=== PATIENT | female | born 1935 | race Caucasian/White ===

== ENCOUNTER 2021-01-05 13:51 | Outpatient (REF) | payer MEDICARE, SELFPAY ==
[2021-01-05 15:00] LABS: Anion Gap 14 (12-20); Blood Urea Nitrogen 21 mg/dL (9-16); Calcium 9.5 mg/dL (8.4-10.2); Carbon Dioxide 24 mmol/L (22-29); Chloride 105 mmol/L (96-108); Estimated Glomerular Filt Rate 37; Glucose Random 205 mg/dL (60-115); Potassium 4.1 mmol/L (3.3-5.1); Sodium 139 mmol/L (135-145)
== END 2021-01-05 13:52 | disposition home or self-care (01) ==
LOC: HO.LNP 13:51
PROVIDERS: Visit Provider Internal Medicine
DX: N18.9 Chronic kidney disease, unspecified (principal)
CPT/HCPCS: 80048

== ENCOUNTER 2024-10-30 11:15 | Outpatient (AMB) | payer OTHER, SELFPAY ==
--- NOTE | 2024-10-30 11:25 | HO.NEPHOV ---
Vital Signs 10/30/24 11:34 Height 5 ft 7 in Weight 189 lb 2 oz BMI 29.6 BP 140/70 H Blood Pressure Location Lt brachial Position Sitting Pulse 70 Pulse Source Pulse Oximeter Pulse Oximetry (%) 97 Oxygen Delivery Method Room Air Intake Visit Reasons: Returning [facility] pt-Conf Director Of Casework Department Required: No Accompanied by: Sister Allergies aspirin Allergy (Unknown, Verified 10/30/24 11:33) Unknown HPI Comments Details: I had the privilege of seeing Susan in follow up of her CKD and hypertension. She was accompanied by her daughter during this visit. She has H/O CAD . She is not any blood thinners . She says she is allergic to aspirin and Plavix. She was on Brillinta for some time but was discontinued. She was asking whether she should be on it. She does not have any nausea, vomiting, diarrhea, dizziness, chest pain, SOB, PND, orthopnea, edema, UTI's, hematuria, recent antibiotic use, intake of NSAID's. Her blood sugars are not well controlled. Her recent BP has been around 140/70 mm of Hg. [facility] Medical History (Updated 10/30/24 @ 19:29 by Steve Montenegro MD) History of heart attack Hypertension Chronic kidney disease, stage 3a Surgical History (Updated 10/30/24 @ 11:28 by Jackie Colon MA) History of appendectomy Family History (Updated 10/30/24 @ 11:30 by Jackie Colon MA) Paternal Aunt Diabetes Paternal Uncle Diabetes Maternal Aunt Diabetes Maternal Uncle Diabetes Sister Diabetes Social History (Updated 10/30/24 @ 11:28 by Jackie Colon MA) Alcohol intake: never Patient Tobacco Use Status: Never used Tobacco Review of Systems Const All systems reviewed & are unremarkable except as noted in HPI and below Physical Exam Vital Signs: Last Vital Signs Pulse 70 10/30/24 11:34 BP 140/70 H 10/30/24 11:34 Pulse Ox 97 10/30/24 11:34 Oxygen Delivery Method Room Air 10/30/24 11:34 BMI result Body Mass Index 29.6 Const General: comfortable and no acute distress Orientation/consciousness: patient oriented x3 HEENT Head: Yes normocephalic Mouth: Normal oral and palatal mucosa present Eyes EOM: EOMs intact bilaterally Neck Neck: Yes supple Resp Auscultation: clear to auscultation bilaterally Cardio Jugular venous distension: no JVD Rate: regular rate GI Palpation (GI): Soft to palpation Auscultation: normal bowel sounds General: Yes no CVA tenderness Back/Spine/Pelvis Back: no CVA tenderness Skin General skin exam: no rashes or lesions noted Neuro General: patient oriented x3 and moves all extremities Extrem General: Yes no pedal edema Results Reviewed Nephrology Results: Sodium 139 mmol/L (135-145) 01/05/21 Potassium 4.1 mmol/L (3.3-5.1) 01/05/21 Chloride 105 mmol/L (96-108) 01/05/21 Carbon Dioxide 24 mmol/L (22-29) 01/05/21 BUN 21 mg/dL (9-16) H 01/05/21 Creatinine 1.37 mg/dL (0.5-1.4) 01/05/21 Calcium 9.5 mg/dL (8.4-10.2) 01/05/21 Assessment & Plan Assessment & Plan (1) Chronic kidney disease, stage 3a: Code(s): N18.31 - Chronic kidney disease, stage 3a Category: Medical (2) Hypertension: Code(s): I10 - Essential (primary) hypertension Category: Medical Qualifiers: Hypertension type: primary hypertension Qualified Code(s): I10 - Essential (primary) hypertension Plan Has CKD 3 due to vascular disease with contribution from DM BP needs to be at goal. Not on ACEI/ARB or SGLT2 i( Don't know why) Continue good hydration, low sodium and avoid NSAID's Needs to be on ASA ( after seeing accounting policy consultant) or some other agent Communicated this with PCP regarding this evening Shall consider doing Doppler renal arteries at next visit Shall start Jardiance at next visit after reviewing data Answered all questions. F/U given Orders: Orders Protein Creatinine Ratio, Ur 6 Months I10 - Essential (primary) hypertension, N18.31 - Chronic kidney disease, stage 3a Creatinine 6 Months I10 - Essential (primary) hypertension, N18.31 - Chronic kidney disease, stage 3a Electrolytes 6 Months I10 - Essential (primary) hypertension, N18.31 - Chronic kidney disease, stage 3a Blood Urea Nitrogen 6 Months I10 - Essential (primary) hypertension, N18.31 - Chronic kidney disease, stage 3a Calcium 6 Months I10 - Essential (primary) hypertension, N18.31 - Chronic kidney disease, stage 3a Coding Level of Care Code Est Pt Level 4 (83841) Diagnoses Chronic kidney disease, stage 3a N18.31 Primary hypertension I10 Hypertension type: primary hypertension
[2024-10-30 11:34] VITALS: BP 140/70; PULSE 70; O2SAT 97; BMI 29.6
--- OUTSIDE RECORDS SUMMARY | 2024-10-30 11:54 | XMS_ITS | Clinical Summary ---
Author Organization [address] [place] [address] Address [address] [place] [address] Phone Care Team Providers Care Project Geophysicist Name Role Phone Michael Tuttle MD Primary Care Provider [phone] Allergies Active Allergy Reactions Criticality Noted Date Comments Aspirin 03/01/2017 Codeine 01/12/2021 Lisinopril 02/25/2018 Other Hallucinations 03/17/2024 Tylenol With Codeine Medications insulin NPH, Isophane, (HumuLIN N NPH U-100 Insulin) 100 unit/mL injection Inject 20 Units into the skin at bedtime. 03/01/2017 Active clopidogreL (PLAVIX) 75 mg tablet Take 1 tablet (75 mg total) by mouth 1 (one) time each day. 30 each 5 09/18/2024 03/17/20 25 Active acetaminophen (TYLENOL) 500 mg capsule Take 1 capsule (500 mg total) by mouth every 6 (six) hours if needed for mild pain. 30 capsule 1 09/20/2024 Active atorvastatin (LIPITOR) 80 mg tablet Take 1 tablet (80 mg total) by mouth 1 (one) time each day. at bedtime. 90 each 09/20/2024 03/19/20 25 Active cholecalciferol (VITAMIN D-3) 25 mcg (1,000 unit) tablet Take 1 tablet (1,000 Units total) by mouth 1 (one) time each day. 30 tablet 1 09/20/2024 Active isosorbide mononitrate (IMDUR) 120 mg 24 hr tablet Take 1 tablet (120 mg total) by mouth 1 (one) time each day. Do not crush or chew. 90 each 2 09/20/2024 06/17/19 26 Active multivitamin (Multiple Vitamins) tablet Take 1 tablet by mouth 1 (one) time each day. 60 tablet 1 09/20/2024 Active Active Problems Problem Noted Date Diagnosed Date Mitral stenosis 03/17/2024 Right leg pain 03/14/2022 Overview (03/17/2024): Last Assessment & Plan: Patient describes pain to the posterior aspect of her right knee. She does have tenderness to her right popliteal fossa on examination. She does not have any calf pain, peripheral edema, erythema, palpable cords. She does have risk factor for DVT as she was on prolonged flights within the past few months. I was able to get her a right lower extremity venous ultrasound for tomorrow, March 15, 2022, at 7:30 AM. She was given instructions to arrive 15 minutes early. Adverse drug reaction 03/09/2021 Diarrhea 03/02/2021 CAD (coronary artery disease) 01/06/2021 Overview (03/17/2024): Last Assessment & Plan: Patient has a history of coronary artery disease. She continues to deny any cardiac concerns today including episodes of chest discomfort and shortness of breath. She denies any exertional symptoms. She continues on cardioprotective medical therapy with carvedilol, atorvastatin, isosorbide mononitrate, amlodipine, and Brilinta. The patient continues on Brilinta 60 mg orally twice daily due to history of allergy to aspirin as well as significant side effects of diarrhea when she was on Plavix. She denies any episodes of bleeding or excessive bruising. At this point, we will continue current therapies. Assessment & Plan (09/18/2024 3:50 PM EDT): Stable on Lipitor, stop the Brilinta. It is causing headaches she thinks. Stop same .start Plavix. Imdur was increased to 120 mg daily by her cell geneticist. Not sure whether that is causing headaches. Orders: Hemoglobin A1c; Future CBC and differential; Future Comprehensive metabolic panel; Future Lipid panel with reflex to direct LDL; Future Thyroid stimulating hormone; Future Assessment & Plan (07/10/2024 11:24 AM EST): Patient has a history of coronary artery disease status post late presenting STEMI in December 2020. She also has a history of aspirin allergy and previously on antiplatelet therapy with Plavix, however this was switched to Brilinta in the past due to apparent side effects of the GI side effects with the use of Plavix. On today's visit, she reports she has stopped taking Brilinta, Coreg, and Imdur and statin. She self discontinued these medications as she perceives they were causing her side effects including gum pain. She was recently seen in the ER with neurological symptoms. On today's visit, we discussed the importance of taking Brilinta 60 mg orally twice daily given her history of coronary artery disease. She is hyperfocused on Brilinta and Coreg having interaction with each other and she is adamant that after restarting Coreg recently she has noticed these perceived side effects and that is why she stopped the Brilinta. At this point, I recommend she hold the Coreg and restart Brilinta as prescribed. She will also restart isosorbide mononitrate and atorvastatin. We discussed the importance of these medications given her history. I strongly encouraged her to have someone help her with her medications as she seems quite forgetful. Currently, she denies any anginal symptoms or episodes of chest pain. Upper respiratory tract infection 12/04/2018 Type 2 diabetes mellitus wit h neurological manifestations ([facility] V24, [facility] V28) 09/11/2018 Carpal tunnel syndrome 09/11/2018 Hypertension 02/25/2018 Overview (03/17/2024): Last Assessment & Plan: Patient has a history of hypertension. Her blood pressure is noted to be well controlled today with a reading of 128/70. She will continue her current antihypertensive medication regimen with amlodipine, carvedilol, and isosorbide. No changes to medical therapies. Assessment & Plan (09/18/2024 3:50 PM EDT): Under control Orders: Hemoglobin A1c; Future CBC and differential; Future Comprehensive metabolic panel; Future Lipid panel with reflex to direct LDL; Future Thyroid stimulating hormone; Future Assessment & Plan (07/10/2024 11:24 AM EST): Patient's blood pressure is acceptable today. She will continue her current antihypertensive medication regimen as prescribed. Type 2 diabetes mellitus wit h renal manifestations ([facility] V24, [facility] V28) 02/25/2018 CKD (chronic kidney disease) stage 3, GFR 30-59 ml/min ([facility] V24, [facility] V28) 02/25/2018 DM (obstructive sleep apnea) 02/25/2018 Hypomagnesemia 05/23/2017 Hyperlipidemia 04/10/2017 Overview (03/17/2024): Last Assessment & Plan: Patient has a history of hyperlipidemia as well as a history of coronary artery disease. Her last LDL cholesterol was noted to be 54. She continues on her current dose of atorvastatin as prescribed. At this point, we will continue current therapies. I have reviewed with the patient the importance of a heart healthy lifestyle which includes eating a low-fat low-salt diet, getting regular exercise, maintaining a healthy weight, not smoking, and following up with routine medical care. GERD (gastroesophageal reflux disease) 7 DJD (degenerative joint disease) of knee 012 Encounters Date Type Department Care Team Description 2024 Telephone Internal Medicine - [place] [address] [address] Michael Tuttle MD 10/03/2024 Telephone Internal Medicine - [place] [address] [address] Michael Tuttle MD Triage 09/18/2024 9:37 PM EDT - 09/19/2024 1:39 AM EDT Emergency [facility] Emergency [address] [place] [id number] Medication overdose, accidental or unintentional, initial encounter (Primary Dx) Discharge Disposition: Home or Self Care 09/18/2024 3:00 PM EDT Office Visit Internal Medicine [address] [phone] Michael Tuttle MD Primary hypertension (Primary Dx); Hypercholesterolemia; Coronary artery disease involving nightmute coronary artery of nightmute heart without angina pectoris; Diabetes mellitus type 1.5, managed as type 2 ([facility] V24, [facility] V28); Stage 3 chronic kidney disease, unspecified whether stage 3a or 3b CKD ([facility] V24, [facility] V28) 09/16/2024 Telephone [facility] [address] [place] [address] Conrado Rush MD Medication 08/11/2024 Telephone [facility] [address] [place] [address] Jaqueline Ocasio NP appointment cancelation from Last 3 Months Immunizations Name Administration Dates Next Due Influenza trivalent, 0.5mL ( Fluzone High-dose) 65yo and older 03/21/2019 Surgical History Surgery Date Site/Laterality Comments CHOLECYSTECTOMY PROCEDURE: HISTORICAL CHOLECYSTECTOMY CARPAL TUNNEL RELEASE PROCEDURE: HISTORICAL CARPAL TUNNEL REL; COMMENT: bilateral CATARACT EXTRACTION PROCEDURE: HISTORICAL CATARACT REMOVAL OTHER SURGICAL HISTORY PROCEDURE: HISTORY OTHER; COMMENT: polypectomy , no further information OTHER SURGICAL HISTORY PROCEDURE: HISTORY OTHER; COMMENT: breast cyst removal Medical History Medical History Date Comments CKD (chronic kidney disease) stage 3, GFR 30-59 ml/min ([facility] V24, [facility] V28) 02/25/2018 DX:CKD (chronic kidney disea se) stage 3, GFR 30-59 ml/min ([facility]) DJD (degenerative joint dise ase) of knee 07/11/2011 DX:DJD (degenerative joint d isease) of knee GERD (gastroesophageal reflu x disease) 04/10/2017 DX:GERD (gastroesophageal re flux disease) Hyperlipidemia 04/10/2017 DX:Hyperlipidemi a Hypertension 02/25/2018 DX:Hypertension Hypomagnesemia 05/23/2017 DX:Hypomagnesemi a DM (obstructive sleep apnea) 02/25/2018 DX :DM (obstructive sleep apnea) Type 2 diabetes mellitus wit h renal manifestations ([facility] V24, [facility] V28) 02/25/2018 DX:Type 2 diabetes mellitus with renal manifestations ([facility]) Carpal tunnel syndrome 09/11/2018 DX:Carpal tunnel syndrome Type 2 diabetes mellitus wit h neurological manifestations (CMS/HCC V24, CMS/HCC V28) 09/11/2018 DX:Type 2 diabetes mellitus with neurological manifestations (HCC) Family History Medical History Relation Name Comments Hypertension Mother CVA Relation Name Status Comments Father Mother Social History Tobacco Use Types Packs/Day Years Used Date Smoking Tobacco: Never Smokeless Tobacco: Never Alcohol Use Standard Drinks/Week Comments No 0 (1 standard drink = 0.6 oz pur e alcohol) Comments Unknown Sex and Gender Information Value Date Recorded Sex Assigned at Female 09/18/2024 10:17 PM EDT Legal Sex Female 8:48 PM EST Gender Identity Female 09/18/2024 10:17 PM EDT Sexual Orientation Straight 09/18/2024 10 :17 PM EDT Obstetrics History Last Filed Vital Signs Vital Sign Reading Time Taken Comments Blood Pressure 149/71 09/18/2024 9:48 PM EDT Pulse 74 09/18/2024 9:48 PM EDT Temperature 36.8 ??C (98.2 ??F) 09/18/2024 9:48 PM ED T Respiratory Rate 20 09/18/2024 9:48 PM EDT Oxygen Saturation 99% 09/18/2024 9:48 PM EDT Inhaled Oxygen Concentration - - Weight 83.8 kg (184 lb 12.8 oz) 09/18/2024 3:12 PM EDT Height 170.2 cm (5' 7 ) 09/18/2024 3:12 PM EDT Body Mass Index 28.94 09/18/2024 3:12 PM EDT Plan of Treatment Upcoming Encounters Date Type Department Care Team (Late st Contact Info) Description 11/10/2024 10:40 AM EDT Office Visit [facility] [address] [facility] [address] [place] [phone] Michelle Galvez NP [address] [place] [address] [place] [address] 01/12/2025 1:15 PM EDT Office Visit Internal Medicine - [place] [address] [place] [phone] Michael Tuttle MD [address] [address] 03/23/2025 3:00 PM EDT Office Visit Internal Medicine - [place] [address] [phone] Michael Tuttle MD [address] [address] Health Maintenance Due Date Last Done Comments Diabetes: Annual Foot Exam 1945 DTaP,Tdap,and Td Vaccines (1 - Tdap) 10[birth year]28/1954 RSV Immunization Adult Patients (1 - 1-dose 75+ series) 10/28/2011 Zoster Vaccines (2 of 3) 01/11/2016 11/16/2015 Osteoporosis Screening (Bone Density Screening) 05/20/2022 Social Influencers of Health Screening 05/20/2022 COVID-19 Vaccine (7 - Pfizer risk season) 2024 03/08/2024, 03/13/2023, 03/08/2022, Additional history exists Diabetes: Annual Retina Eye Exam 11/12/2024 11/13/2023 Diabetes: Blood Sugar Control Test (HGBA1C) 03/28/2025 09/26/2024, 04/28/2024, 08/22/2019 Depression Screening 09/18/2025 09/18/2024 Falls Risk Assessment 09/18/2025 09/18/2024 Medicare Annual Wellness Visit 09/18/2025 09/18/2024 Hypertension/CHF/CAD Annual BMP Blood Test 09/26/2025 09/26/2024, 04/28/2024, 08/22/2019 Cholesterol Screening (Lipid Panel) 09/26/2029 09/26/2024, 04/28/2024, 04/28/2024, Additional history exists Pneumococcal Vaccine: 50+ Years Completed 05/09/2022, 03/26/2017, 11/16/2015 Influenza Vaccine Completed 03/08/2024, , 04/06/2022, Additional history exists HIB Vaccines Aged Out No longer eligi ble based on patient's age to complete this topic HPV Vaccines Aged Out No longer eligi ble based on patient's age to complete this topic Hepatitis A Vaccines Aged Out No long er eligible based on patient's age to complete this topic Hepatitis B Vaccines Aged Out No long er eligible based on patient's age to complete this topic IPV Vaccines Aged Out No longer eligi ble based on patient's age to complete this topic MMR Vaccines Aged Out No longer eligi ble based on patient's age to complete this topic Meningococcal ACWY Vaccine Aged Out N o longer eligible based on patient's age to complete this topic Meningococcal B Vaccine Aged Out No l onger eligible based on patient's age to complete this topic RSV Immunization Patients Under 20 months Aged Out No longer eligible based on patient's age to complete this topic Varicella Vaccines Aged Out No longer eligible based on patient's age to complete this topic Procedures Procedure Name Priority Date/Time Associated Diagnosis Comments CBC WITH AUTO DIFFERENTIAL Routine 09/26/2024 2:20 PM EDT Primary hypertension Hypercholesterolem ia Coronary artery disease involving nightmute coronary artery of nightmute heart without angina pectoris Diabetes mellitus type 1.5, managed as type 2 (CMS/HCC V24, CMS/HCC V28) HEMOGLOBIN A1C Routine 09/26/2024 2:20 PM EDT Primary hypertension Hypercholesterolem ia Coronary artery disease involving nightmute coronary artery of nightmute heart without angina pectoris Diabetes mellitus type 1.5, managed as type 2 (CMS/HCC V24, CMS/HCC V28) CBC AND DIFFERENTIAL Routine 09/26/2024 2:20 PM EDT Primary hypertension Hypercholesterolem ia Coronary artery disease involving nightmute coronary artery of nightmute heart without angina pectoris Diabetes mellitus type 1.5, managed as type 2 (CMS/HCC V24, CMS/HCC V28) COMPREHENSIVE METABOLIC PANEL Routine 09/26/2024 2:20 PM EDT Primary hypertension Hypercholesterolem ia Coronary artery disease involving nightmute coronary artery of nightmute heart without angina pectoris Diabetes mellitus type 1.5, managed as type 2 (CMS/HCC V24, CMS/HCC V28) LIPID PANEL WITH REFLEX TO DIRECT LDL Routine 09/26/2024 2:20 PM EDT Primary hypertension Hypercholesterolem ia Coronary artery disease involving nightmute coronary artery of nightmute heart without angina pectoris Diabetes mellitus type 1.5, managed as type 2 ([facility] V24, [facility] V28) THYROID STIMULATING HORMONE Routine 09/26/2024 2:20 PM EDT Primary hypertension Hypercholesterolem ia Coronary artery disease involving nightmute coronary artery of nightmute heart without angina pectoris Diabetes mellitus type 1.5, managed as type 2 ([facility] V24, [facility] V28) DIABETES EYE EXAM Routine 11/13/2023 from Last 3 Months or Most Recently Relevant to Health Maintenance Results * Lipid panel with reflex to direct LDL (09/26/2024 2:20 PM EDT) Pathologist [facility] Cholesterol 101 0 - 200 mg/dL LAB CHEMISTRY METHOD 09/26/2024 7:38 PM EDT [facility] Triglycerides 106 0 - 150 mg/dL LAB CHEMISTRY METHOD 09/26/2024 7:38 PM EDT [facility] HDL 44 >=40 mg/dL LAB CHEMISTRY METHOD 09/26/2024 7:38 PM EDT [facility] LDL Calculated 36 0 - 100 mg/dL LAB CHEMISTRY METHOD 09/26/2024 7:38 PM T [facility] VLDL Cholesterol Tadeo 21.2 mg/dL LAB CHEMISTRY METHOD 09/26/2024 7:38 PM T [facility] Non HDL Chol. (LDL+VLDL) 57 <145 mg/dL LAB CHEMISTRY METHOD 09/26/2024 7:38 PM EDT [facility] Chol/HDL Ratio 2.3 0.0 - 4.4 LAB CHEMISTRY METHOD 09/26/2024 7:38 PM [facility] Blood Venous blood specimen / Unknown Venipuncture / Unknown 09/26/2024 2:20 PM EDT 09/26/2024 2:20 PM EDT us Michael Tuttle MD LAB BLOOD ORDERABLES Final Resul t [facility] [address] [place] [address], * (ABNORMAL) CBC auto differential (09/26/2024 2:20 PM EDT) WBC 8.4 4.8 - 10.8 K/mcL LAB HEMETOLOGY METHOD 09/26/2024 7:13 PM EDT [facility] RBC 4.60 3.80 - 4.80 M/mcL LAB HEMETOLOGY METHOD 09/26/2024 7:13 PM EDT [facility] Hemoglobin 13.5 11.5 - 16.0 g/dL LAB HEMETOLOGY METHOD 09/26/2024 7:13 PM EDT [facility] Hematocrit 43.2 35.0 - 47.0 % LAB HEMETOLOGY METHOD 09/26/2024 7:13 PM EDT [facility] MCV 94.5 79.0 - 98.0 FL LAB HEMETOLOGY METHOD 09/26/2024 7:13 PM EDT [facility] MCH 29.5 27.0 - 32.0 pcg LAB HEMETOLOGY METHOD 09/26/2024 7:13 PM EDT [facility] MCHC 31.3(L) 32.0 - 37.0 g/dL LAB HEMETOLOGY METHOD 09/26/2024 7:13 PM EDT [facility] RDW 13.5 11.0 - 15.0 % LAB HEMETOLOGY METHOD 09/26/2024 7:13 PM EDT [facility] Platelets 252 130 - 400 K/mcL LAB HEMETOLOGY METHOD 09/26/2024 7:13 PM EDT [facility] MPV 11.5(H) 7.0 - 11.0 FL LAB HEMETOLOGY METHOD 09/26/2024 7:13 PM EDT [facility] NRBC 0.0 <1.0 % LAB HEMETOLOGY METHOD 09/26/2024 7:13 PM EDT [facility] NRBC Absolute 0.00 <0.10 K/mcL LAB HEMETOLOGY METHOD [facility]/26[facility]2024 7[facility] Neutrophils Relative 59.3 % LAB HEMETOLOGY METHOD 09/26[facility]2024 7:13 PM [facility] Lymphocytes Relative 29.5 % LAB HEMETOLOGY METHOD 09/26/2024 7:13 PM [facility] Monocytes Relative 9.3 % LAB HEMETOLOGY METHOD 09/26/2024 7:13 PM [facility] Eosinophils Relative 1.1 % LAB HEMETOLOGY METHOD 09/26/2024 7:13 PM [facility] Basophils Relative 0.6 % LAB HEMETOLOGY METHOD 09/26/2024 7:13 PM [facility] Immature Granulocytes Relative 0.2 % LAB HEMETOLOGY METHOD 09/26/2024 7:13 PM [facility] Neutrophils Absolute 4.98 1.50 - 7.00 K/mcL LAB HEMETOLOGY METHOD 09/26/2024 7:13 PM [facility] Lymphocytes Absolute 2.48 1.00 - 5.00 K/mcL LAB HEMETOLOGY METHOD 09/26/2024 7:13 PM EDT [facility] Monocytes Absolute 0.78 0.20 - 1.00 K/mcL LAB HEMETOLOGY METHOD 09/26/2024 7:13 PM [facility] Eosinophils Absolute 0.09 0.00 - 0.50 K/mcL LAB HEMETOLOGY METHOD 09/26/2024 7:13 PM [facility] Basophils Absolute 0.05 0.00 - 0.20 K/mcL LAB HEMETOLOGY METHOD 09/26/2024 7:13 PM EDT [facility] Immature Granulocytes Absolute 0.02 0.00 - 0.03 K/mcL LAB HEMETOLOGY METHOD 09/26/2024 7:13 PM EDT [facility] Blood Venous blood specimen / Unknown Venipuncture / Unknown 09/26/2024 2:20 PM EDT 09/26/2024 2:20 PM EDT us Michael Tuttle MD LAB BLOOD ORDERABLES Final Resul t Performing Organization Address [facility]/ZIP Co de Phone Number [facility] [address] [place] [address], [place] [phone] * Thyroid stimulating hormone (09/26/2024 2:20 PM EDT) TSH 1.44 0.40 - 4.00 mcIU/mL LAB CHEMISTRY METHOD 09/26/2024 8:11 PM EDT [facility] Blood Venous blood specimen / Unknown Venipuncture / Unknown 09/26/2024 2:20 PM EDT 09/26/2024 2:20 PM EDT us Michael Tuttle MD LAB BLOOD ORDERABLES Final Resul t Performing Organization Address [facility]/ZIP Co de Phone Number [facility] [address] [place] [address], [place] [phone] * (ABNORMAL) Hemoglobin A1c (09/26/2024 2:20 PM EDT) Hemoglobin A1C 8.0(H) <6.5 % LAB CHEMISTRY METHOD 09/26/2024 9:34 PM EDT [facility] Mean Bld Glu Estim. 183 mg/dL LAB CHEMISTRY METHOD 09/26/2024 9:34 PM EDT [facility] Blood Venous blood specimen / Unknown Venipuncture / Unknown 09/26/2024 2:20 PM EDT 09/26/2024 2:20 PM EDT us Michael Tuttle MD LAB BLOOD ORDERABLES Final Resul t [facility] [address] [place] [address], [place] [phone] * (ABNORMAL) Comprehensive metabolic panel (09/26/2024 2:20 PM EDT) Pathologist [facility] Sodium 141 133 - 145 mmol/L LAB CHEMISTRY METHOD 09/26/2024 7:38 PM [facility] Potassium 4.3 3.5 - 5.5 mmol/L LAB CHEMISTRY METHOD 09/26/2024 7:38 PM [facility] Chloride 108 96 - 110 mmol/L LAB CHEMISTRY METHOD 09/26/2024 7:38 PM [facility] CO2 26 21 - 32 mmol/L LAB CHEMISTRY METHOD 09/26/2024 7:38 PM [facility] Anion Gap 7 3 - 11 LAB CHEMISTRY METHOD 09/26/2024 7:38 PM [facility] Glucose 158(H) 70 - 100 mg/dL LAB CHEMISTRY METHOD 09/26/2024 7:38 PM [facility] BUN 17 5 - 25 mg/dL LAB CHEMISTRY METHOD 09/26/2024 7:38 PM [facility] Creatinine 1.37(H) 0.50 - 1.10 mg/dL LAB CHEMISTRY METHOD 09/26/2024 7:38 PM [facility] eGFR 37(L) >=60 mL/min/1. 73m2 LAB CHEMISTRY METHOD 09/26/2024 7:38 PM [facility] Comment:Calculation based on the??Chronic Kidney Disease Epidemiology Collaboration (CKD-EPI) equation refit??without adjustment for race. BUN/Creatinine Ratio 12.4 LAB CHEMISTRY METHOD 09/26/2024 7:38 PM T [facility] Calcium 9.8 8.5 - 10.5 mg/dL LAB CHEMISTRY METHOD 09/26/2024 7:38 PM T [facility] AST (SGOT) 20 10 - 42 unit/L LAB CHEMISTRY METHOD 09/26/2024 7:38 PM [facility] ALT (SGPT) 21 10 - 60 unit/L LAB CHEMISTRY METHOD 09/26/2024 7:38 PM [facility] Alkaline Phosphatase 114 42 - 121 unit/L LAB CHEMISTRY METHOD 09/26/2024 7:38 PM [facility] Total Protein 6.8 6.0 - 8.0 g/dL LAB CHEMISTRY METHOD 09/26/2024 7:38 PM [facility] Albumin 3.4 3.2 - 5.0 g/dL LAB CHEMISTRY METHOD 09/26/2024 7:38 PM [facility] Total Bilirubin 0.5 0.0 - 1.4 mg/dL LAB CHEMISTRY METHOD 09/26/2024 7:38 PM [facility] Blood Venous blood specimen / Unknown Venipuncture / Unknown 09/26/2024 2:20 PM EDT 09/26/2024 2:20 PM EDT Michael Tuttle MD LAB BLOOD ORDERABLES Final Resul t [facility] [address] [place] [address], * Diabetes Eye Exam (11/13/2023) Diabetes: Annual Retina Eye Exam abstracted Historical Provider HEALTH MAINTENANCE Final Result from Last 3 Months or Most Recently Relevant to Health Maintenance Insurance [employer] MEDICARE [place]ICAID - [place] Care Teams Project Geophysicist Relationship Specialty Start Date End Date Michael Tuttle MD 175 [facility] [address] [place] [address] PCP - General Internal Medicine 03/03/21
--- OUTSIDE RECORDS SUMMARY | 2024-10-30 11:54 | XMS_ITS | Clinical Summary ---
Author Organization [facility] Address [address] [facility] [address] [place] [address] Phone Care Team Providers Care Beef Pusher Name Role Phone Michael Tuttle MD Primary Care Provider Allergies Active Allergy Reactions Criticality Noted Date Comments Aspirin Other (see comments) 11/11/2020 Other reaction(s): foaming at mouth Medications amLODIPine (NORVASC) 10 MG tablet Take 1 tablet by mouth 1 (one) time each day Active carvedilol (COREG) 6.25 MG tablet Take 1 tablet by mouth 2 (two) times a day 12/31/2017 Active Insulin Lispro, 1 Unit Dial, 100 UNIT/ML solution pen-injector Inject 15 Units under the skin 2 (two) times a day Active insulin NPH, Isophane, (HumuLIN N) 100 UNIT/ML injection Inject 19 Units under the skin 2 (two) times a day Active isosorbide mononitrate (IMDUR) 120 MG 24 hr tablet Take 120 mg by mouth 1 (one) time each day 02/23/2021 Active Brilinta 60 MG tablet Take 1 tablet by mouth 2 (two) times a day 04/12/2021 Active atorvastatin (LIPITOR) 80 MG tablet Take 80 mg by mouth at bed time 03/29/2021 Active Active Problems Problem Noted Date Diagnosed Date Asymptomatic coronary heart disease 03/14/2022 Hypercholesterolemia 03/14/2022 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 Peripheral vascular disease 03/14/2022 Palpitations 12/06/2021 Type 2 diabetes mellitus 12/06/2021 Hypertension 12/06/2021 Hypertensive disorder 05/10/2021 Benign hypertensive renal disease 11/11/2020 Stage 3a chronic kidney disease 11/11/2020 Family History Medical History Relation Comments Hypertension Mother Stroke Mother Diabetes Sibling 1 Cancer Sibling 2 Relation Status Comments Father Mother Sibling 1 Sibling 2 Social History Tobacco Use Types Packs/Day Years Used Date Smoking Tobacco: Never Smokeless Tobacco: Never Tobacco Cessation:Counseling Given: Not Answered Alcohol Use Standard Drinks/Week Comments No 0 (1 standard drink = 0.6 oz pur e alcohol) Comments Unknown Sex and Gender Information Value Date Recorded Sex Assigned at Not on file Legal Sex Female 5:02 PM EST Gender Identity Not on file Sexual Orientation Not on file Last Filed Vital Signs Vital Sign Reading Time Taken Comments Blood Pressure 130/70 05/30/2022 2:40 PM EST Pulse 63 05/30/2022 2:40 PM EST Temperature - - Respiratory Rate - - Oxygen Saturation 96% 05/10/2021 2:37 PM EST Inhaled Oxygen Concentration - - Weight 96.1 kg (211 lb 12.8 oz) 05/30/2022 2:40 PM EST Height 170.2 cm (5' 7 ) 09/26/2019 12:0 0 PM EDT Body Mass Index 33.17 09/26/2019 12:00 PM EDT Plan of Treatment Health Maintenance Due Date Last Done Comments Pneumococcal Vaccine: 50+ Ye ars (1 of 2 - PCV) 10/28/1954 Diabetes: Ophthalmology Exam 09/20/2021 Diabetes: Pedal Pulse Checked 09/20/2021 Diabetes: Sensory Foot Exam 09/20/2021 Diabetes: Visual Foot Exam 09/20/2021 Diabetes: Hemoglobin A1C 12/26/2024 09/26/2024 Influenza Vaccine (Season Ended) 2025 03/21/20 Hepatitis B Vaccine Aged Out No longe r eligible based on patient's age to complete this topic Insurance Medicare Medicare Care Teams Beef Pusher Relationship Specialty Start Date End Date Michael Tuttle MD [address] [place] [id number] PCP - General 06/21/20
--- OUTSIDE RECORDS SUMMARY | 2024-10-30 11:54 | XMS_ITS | Patient Health Record ---
Author Organization [facility] Address [address] [place] [address] Care Team Providers Care Network Architect Manager Name Role Phone Michael Tuttle MD Primary Care Provider UnavailCrow Alcantara Unavailable [phone] Allergies Allergen (clinical drug ingredient) Drug/Non Drug Allergy documented on EMR Reaction Allergy Type Onset Date Status aspirin Aspirin mouth foams Drug Allergy Activ e fluticasone Flonase itch Drug Allergy Activ e Shrimp/Shell Fish tingle & mouth swell Drug Allergy Active Reason For Referral No Information Medications Medication SIG (Take, Route, Frequency, Duration) Notes Start Date End Date Status Losartan Potassium 50 MG take 1 tablet b y mouth once daily Oral for 90 Not-Taking Extra Depth Diabetic Shoes with 3 Pair Custom heat-molded multi-density innersoles for 1 year Dx: 10/31/2016 Active Olmesartan Medoxomil 20 MG Oral for 30 Not-Taking Omeprazole 20 MG Oral for 30 N ot-Taking Multivitamin Active HumuLIN N Active Vitamin D Active hydroCHLOROthiazide 12.5 MG take 1 table t by mouth once daily Oral for 30 Active Benicar 20 MG Oral for 30 Acti ve amLODIPine Besylate 10 MG take 1 tablet by mouth once daily Oral for 90 Active Simvastatin 10 MG Oral for 90 Not-Taking Social History Tobacco Use: Social History Observation Description Date Details (start date - stop date) Never Smoker NA - NA Tobacco Use/Smoking Question Answer Notes Are you a: nonsmoker Additional Findings: Tobacco Non-User Current no n-smoker Alcohol Screen Question Answer Notes Did you have a drink containing alcohol in the p ast year? No Points 0 Interpretation Negative Tobacco use other than smoking: Question Answer Notes Are you an other tobacco user? No Problems Problem Type SNOMED Code ICD Code Onset Dates Problem Status W/U Status Risk Notes Problem Acquired hammer toe of right foot (7977771000315131 ) Other hammer toe(s) (acquired), right foot (M20.41) Active confirmed Problem Acquired hammer toe of left foot (8530350921764904 ) Other hammer toe(s) (acquired), left foot (M20.42) Active confirmed Problem Polyneuropathy due to diabetes mellitus type I (374186268) Type 1 diabetes mellitus with diabetic polyneuropathy (E10.42) Active confirmed Plan Of Treatment Pending Test Test Name Order Date [id number] NAIL, 6 OR MORE 10/31/2016 [id number] NAIL, 6 OR MORE 01/30/2017 [id number] SKIN LESIONS, OVER 4 11/01/19 17 [id number] SKIN LESIONS, OVER 4 01/31/20 17 Next Appt Details Provider Name:Michelle plummer, 01/01/2025 10:30:00 AM, [address] [facility], [place], [address], Insurance Providers Payer Name Payer Address Payer Phone Subscriber Number Group Number Insured Name Patient Relationship to Insured Coverage Start Date Coverage End Date AARP Medicare Complete [address] [address] [place] [address] [id number] Susan Florez Self - patient is the insured Medical (General) History Medical History History ICD Code Arthritis Diabetic Hypertension Kidney disease Reflux ( GERD) chronic sinusitis Measles Mumps Chicken pox Surgical History Surgery Date(Month/Year) gall bladder over 10years carpal tunnel surgery-both hand eye surgery 2015
--- OUTSIDE RECORDS SUMMARY | 2024-10-30 11:54 | XMS_ITS | Continuity of Care Document ---
Author Organization [facility] [address] [facility] [address] [place] [address] Phone [phone] Care Team Providers Care Regulatory Assistant Name Role Phone Michael Tuttle M.D. Care Team Information Receive r [phone] Problems Active Problems Provider Date Type 2 diabetes mellitus Crispin Choudhury M.D. O nset: 03/14/2022 Hypercholesterolemia Crispin Choudhury M.D. Onset : 03/14/2022 Peripheral vascular disease Lincoln Calderon Onset: 03/14/2022 Asymptomatic coronary heart disease Crispin hurtado M.D. Onset: 03/14/2022 Peripheral arterial occlusive disease Crispin jiménez M.D. Onset: 03/14/2022 Insulin treated type 2 diabetes mellitus Crispin cruz M.D. Onset: 12/08/2022 Essential hypertension Crispin Choudhury M.D. Ons et: 12/08/2022 Osteoarthritis Crispin Choudhury M.D. Onset: Social History Type Date Description Comments Sex Unknown Lives With Alone ETOH Use Denies alcohol use Tobacco Use Start: Unknown Patient has never smoked Allergies and adverse reactions Active Allergies Criticality Reaction Severity Comments Date Aspirin Unable to assess criticality 03/14/2022 Medications Active Medications SIG Qnty Indications Order ing Provider Date BD Insulin Syringe Ultrafine/0.3ML/31G X 5/16 31G X 5/16 0.3 ML Misc use syringes to inject insulins twice a day 100units E11.9 Karrie Cintron M.D. 09/12/2024 BD Pen Needle/Mini/Ultra-F ine/31G X 5mm31G X 5 mm Misc Use Twice Daily To Inject Insulin 100units Karrie Cintron M.D. 09/08/2024 Isosorbide Mononitrate AR358fn Tablets ER 24HR one qd Crispin Choudhury M.D. 04/10/2023 Oxybutynin Chloride ER10mg Tablets ER 24HR take 1 tablet by mouth every day for 90 days 90tabs Crispin Choudhury M.D. 04/10/2023 Iron (Ferrous Sulfate)325(65Fe) mg Tablets Crispin Choudhury M.D. 03/14/2022 Amlodipine Tuzkckxv82ap Tablets Take 1 Tablet By Mouth Every Day 90tabs Karrie Cintron M.D. 12/27/2021 Carvedilol6.25mg Tablets Take 1 Tablet By Mouth Twice Daily 180tabs Karrie Cintron M.D. Humulin Z239Teme/ML Suspension Inject Subcutaneously 19 Units Twice Daily 40units E11.9 Valentino Wheeler M.D. Atorvastatin Wmfihss35az Tablets Take 1 Tablet By Mouth AT Bedtime Christine Atwood PA-C Humalog Gdajzrc619Lbmv/ML Solution Pen-Inject inject 8 units pre bkfst and supper 20ml E11.9 Crispin Choudhury M.D. Vitamin N9120gvb (5000 Ut) Capsules 3 by mouth every week Unknown History Medications BD Insulin Syringe Ultra-Fine/1ML/30G X 12.7mm30G X 1/2 1 ML Misc use syringes to inject insulins twice a day 300units E11.9 Karrie Cintron M.D. 09/11/2024 - 09/12/2024 B-D Pen NDL SHRT 30SB0ML(10/24) Derek Use Twice Daily To Inject Insulin 200units Karrie Cintron M.D. 08/29/2024 - 09/08/2024 BD Insulin Syringe Ultra Fine/1ML/30G X 1/2 30G X 1/2 1 ML Misc use syringes to inject insulin twice a day 200units E11.9 Karrie Cintron M.D. 03/27/2024 - 09/11/2024 Medications Administered in Office Medication SIG Qnty Indications Ordering Provider Date Inject/Drain Arthrocentesis Major Joint/Bursa/Ganglion CystInjection Crispin Choudhury M.D. 12/08 Vital Signs Date Vital Result Comment 10/09/2024 1:20pm BP Systolic 128 mmHg BP Diastolic 74 mmHg Heart Rate 60 /min Height 67 inches 5'7 Weight 186.25 lb BMI (Body Mass Index) 29.2 kg/m2 Results Test Acquired Date Facility Test Result H/L Range Note Hemoglobin A1c 10/09/2024 Inhouse Hemoglobin A1c 7.7% Glucose Fingerstick 10/09/2024 Inhouse Glucose Fingerstick 134 Glucose Fingerstick 07/11/2024 Inhouse Glucose Fingerstick 86 Hemoglobin A1c 07/11/2024 Inhouse Hemoglobin A1c 7.0% Glucose Fingerstick 03/20/2024 Inhouse Glucose Fingerstick 142 Hemoglobin A1c 03/20/2024 Inhouse Hemoglobin A1c 7.2% Glucose Fingerstick 04/10/2023 Inhouse Glucose Fingerstick 158 Hemoglobin A1c 04/10/2023 Inhouse Hemoglobin A1c 7.2% Hemoglobin A1c 01/05/2023 [facility] Hemoglobin A1c 7.6 % High (4.0-5.6 ) 1 Lipid Panel 01/05/2023 [facility] Cholesterol, Total 123 mg/dL (<200) Triglyceride 91 mg/dL (<150) HDL Chol 51 mg/dL (>39) LDL Cholesterol , Calculated 54 mg/dL (0-130) Non HDL Cholesterol (Calc) 72 mg/dL (<160) Comprehensive Metabolic Panl 01/05/2023 [facility] Glucose 170 mg/dL High (70-99) BUN 16 mg/dL (8-23) Creatinine 1.3 mg/dL High (0.5-1.0 ) Sodium 142 mmol/L (133-145 ) Potassium 4.4 mmol/L (3.6-5.2 ) Chloride 107 mmol/L (98-107) Bicarbonate 25 mmol/L (22-29) Anion Gap 10 (4-17) Albumin 4.1 GM/DL (3.4-4.8 ) Calcium 10.0 mg/dL (8.6-10. 5) Bilirubin,Total 0.5 mg/dL (0-1.2 ) Total Protein 6.8 GM/DL (6.2-8.2 ) Ag Ratio 1.5 Ast 21 U/L (0-32) Alk Phos 86 U/L (35-104) Alt 17 U/L (0-33) Estimated GFR Creatinine 39 ML/MIN/1. 73M2 2 Complete Abc With Diff 01/05/2023 [facility] WBC 9.1 K/MM3 (4.0-11. 0) RBC 4.81 M/MM3 (4.20-5. 40) HGB 13.8 GM/DL (11.7-15 .5) HCT 43.6 % (35.7-45 .8) MCV 90.6 FL (80.0-10 0.0) MCH 28.7 pg (27.0-34 .0) MCHC 31.7 g/dL Low (33.0-37 .0) PLT 253 K/MM3 (150-460 ) RDW-SD 46.3 FL (<47.0) MPV 11.0 FL (9.4-12. 4) Automated NRBC 0.0 #/100WBC' S Abs. NRBC 0.0 K/MM3 Neut # 5.4 K/MM3 (1.3-7.0 ) Lymph # 2.8 K/MM3 (0.8-3.1 ) Stafford# 0.8 K/MM3 (0.4-0.9 ) Eo # 0.1 K/MM3 (0.0-0.4 ) Baso # 0.0 K/MM3 (0.0-0.1 ) Abs. Imm Gran 0.0 K/MM3 Neut 59.5 % (44-76) Lymph 30.1 % (15-43) Monocyte 8.3 % (4.5-10. 5) Eo 1.5 % (0-6) Baso 0.4 % (0-2) Imm Gran 0.2 % Urinary Microalbumin 01/05/2023 [facility] Micro-Albumin 51.0 mg/L High (<20) 3 Malb/Creat Ratio 29.9 MG/GM High (0-20) Urine Creat For Micro Albumin 169.0 mg/dL Glucose Fingerstick 12/08/2022 Inhouse Glucose Fingerstick 232 Hemoglobin A1c 12/08/2022 Inhouse Hemoglobin A1c 7.6% Glucose Fingerstick 08/30/2022 Inhouse Glucose Fingerstick 120 Hemoglobin A1c 08/30/2022 Inhouse Hemoglobin A1c 8.0% Hemoglobin A1c 03/14/2022 [facility] Hemoglobin A1c <pending> Glucose Fingerstick 03/14/2022 Inhouse Glucose Fingerstick 167 Hemoglobin A1c 03/14/2022 Inhouse Hemoglobin A1c 7.9% 1 MONITORING: In known diabetic patients, hemoglobin A1c targets should be discussed with health care provider. DIAGNOSTIC USE: The [place] Diabetes Association (ADA) and the World Health Organization (WHO) recommend the use of HbA1c to diagnose diabetes using a threshold of 6.5%. Patients who have an HbA1c between 5.7% and 6.4% are considered at increased risk for developing diabetes in the future. CAUTION: Falsely low HbA1c results may be observed in patients with hemolytic anemia, homozygous forms of abnormal hemoglobin (e.g. SS, CC, SC), , recent blood loss or hemoglobin F greater than 7%. Fructosamine may be used as an alternate test in these cases. REFERENCE: ADA: Standards of Medical Care in Diabetes 2020, The Journal of Clinical and Applied Research and Education Volume 43, Supplement 1 2 Creatinine based est imated glomerular filtration (eGFR) in adults is calculated using the National Kidney Foundation recommended 2020 CKD-EPI equation. Estimates GFR from serum creatinine, age and sex. 3 The urine microalbum in test is designed to monitor renal function. When screening for Bence Florez proteinuria, urine electrophoresis is recommended. Procedures Date Code Description Status 12/08/2022 72199 Inject/Drain Art hrocentesis Major Joint/Bursa/Ganglion Cyst Completed Medical Devices Description No Information Available Encounters Type Date Location Provider Dx Diagnosis Office Visit 10/09/2024 1:15p Main Office KAROLINE Hansen E11.9 Type 2 diabet es mellitus without complications Z79.4 terminologist (current) use of insulin I10 Essential (primary) hypertension I25.89 Other forms of chron ic ischemic heart disease E78.00 Pure hypercholestero lemia, unspecified Assessments Date Code Description Provider 10/09/2024 E11.9 Type 2 diabetes mellitus wit hout complications KAROLINE Hansen 10/09/2024 Z79.4 halfway (current) use of i nsulin KAROLINE Hansen 10/09/2024 I10 Essential hypertension KAROLINE Hodgson 10/09/2024 I25.89 Asymptomatic coronary heart disease KAROLINE Hansen 10/09/2024 E78.00 Hypercholesterolemia KAROLINE Hansen Plan of Treatment Future Appointment(s):* 02/10/2025 1:00 pm - KAROLINE Hansen at Main Office 10/09/2024 - KAROLINE Hansen* E11.9 Type 2 diabetes mellitus without complications * Z79.4 terminologist (current) use of insulin * I10 Essential hypertension * I25.89 Asymptomatic coronary heart disease * E78.00 Hypercholesterolemia Functional Status Description No Information Available Mental Status Description No Information Available Referrals Description No Information Available
--- OUTSIDE RECORDS SUMMARY | 2024-10-30 11:54 | XMS_ITS | Encounter Summary ---
Author Organization [facility] Address [address] [place] [address] Care Team Providers Care Back Tacker Name Role Phone Michael Tuttle MD Primary Care Provider [phone] Reason for Referral * Consultation (Routine) - Closed Specialty Diagnoses / Procedures Referred By Santhosh jaimes Referred To Contact Neurology Diagnoses Acute nonintractable headache, unspecified headache type Michael Tuttle MD [address] [address] Phone: tel: fax: Torri Rosario, [facility] [address] [facility] [address] [place] [address] Phone: tel: fax: Referral ID Status Reason Start Date Expiration Date V isits Requested Visits Authorized [id number] Closed Specialty Services Required 2024 2025 1 1 Encounter Details Date Type Department Care Team (Late st Contact Info) Description 2024 Telephone Internal Medicine - [place] [address] [phone] Michael Tuttle MD [address] [address] Social History Tobacco Use Types Packs/Day Years [...] Orientation Straight 09/18/2024 10 :17 PM EDT documented as of this encounter Progress Notes * Jaqueline Guillermo - 2024 1:32 PM EDT What insurance does the patient have today? [facility]: [email or web address]/@[email or web address]@ Referrals cannot be processed if the insurance is not accurate. If the insurance listed above is NO BILLING INFORMATION FOUND FOR THIS ENCOUNTER then the patients correct insurance must be obtainedand registered in [facility] or their referral can not be processed. Name of person calling to request this referral? [facility] Referred To Provider (Include first and last name): Torri Rosario NPI (if known): [phone] Order/Specialty requested Neurology Chief Complaint (Note: This is not a body part or a procedure): Post concussion ~ 08/23/23 Has the patient seen provider for this problem/Dx before? no Referred To Provider Address: [address] [place] [address] Referred To Provider Referred To Provider Does patient have an appointment scheduled?: yes If yes, what is the date of the appointment?: 10/31/2024 Is this a retro request? no Number of visits requested: 6 Is this appointment related to: MVA or worker compensation? no documented in this encounter Plan of Treatment Upcoming Encounters Date Type Department Care Team (Late st Contact Info) Description 11/10/2024 10:40 AM EDT Office Visit [facility] Cardiology [facility] [address] [facility] [address] [place] [address] Michelle Galvez NP [address] [place] [address] [place] [address] 01/12/2025 1:15 PM EDT Office Visit Internal Medicine - [place] [address] [phone] Michael Tuttle MD [address] [address] 03/23/2025 3:00 PM EDT Office Visit Internal Medicine [facility] [address] [phone] Michael Tuttle MD [address] [address] Scheduled Referrals Name Type Priority Associated Diagnoses Orde r Schedule Ambulatory referral to Neurology Outpatient Referral Routine Acute nonintractable headache, unspecified headache type 1 Occurrences starting 2024 until 2025 documented as of this encounter Visit Diagnoses Diagnosis Acute nonintractable headache, unspecified headache type- Primary documented in this encounter Additional Health Concerns Assessment Noted Time PHQ-9 Depression Total Score: 1 09/19/19 25 3:21 PM EDT A fall risk assessment has been complete d for the patient 09/18/2024 3:18 PM EDT documented as of this encounter Care Teams Back Tacker Relationship Specialty Start Date End Date Michael Tuttle MD [address] [address] PCP - General Internal Medicine 03/03/21 documented as of this encounter
--- OUTSIDE RECORDS SUMMARY | 2024-10-30 11:54 | XMS_ITS | Clinical Summary ---
Author Organization [employer] Address [address] [facility] [address] [place] [address] Care Team Providers Care Home Aide Name Role Phone Unavailable Primary Care Provider Unavailabl e Social History Tobacco Use Types Packs/Day Years Used Date Smoking Tobacco: Never Assessed Comments Unknown Sex and Gender Information Value Date Recorded Sex Assigned at Not on file Legal Sex Female 8:59 AM EDT Gender Identity Not on file Sexual Orientation Not on file Plan of Treatment Health Maintenance Due Date Last Done Comments Depression Screening 1936 Lipid Panel 1936 SDOH Screening 1936 Alcohol/Substance Use Screening 1948 Tobacco Screening 1947 DTaP/Tdap/Td Vaccines (1 - Tdap) 10/28/1954 Pneumococcal Vaccine: 50+ Ye ars (1 of 1 - PCV) 1986 Zoster Vaccines (1 of 2) 1986 RSV Patients and Pa tients Aged 60 years or older (1 - 1-dose 75+ series) 10/28/2011 COVID-19 Vaccine ( - 2023-2 5 season) 2024 Influenza Vaccine (#1) 2024 HIB Vaccines Aged Out No longer eligi [...] patient's age to complete this topic Meningococcal Vaccine Aged Out No vern elana eligible based on patient's age to complete this topic RSV under 20 months Aged Out No longe r eligible based on patient's age to complete this topic Rotavirus Vaccines Aged Out No longer eligible based on patient's age to complete this topic Insurance [facility]
== END 2024-10-30 12:02 | disposition home or self-care (01) ==
LOC: HO.HKAS 11:16
PROVIDERS: PCP Internal Medicine; Visit Provider Internal Medicine Nephrology
DX: N18.31 Chronic kidney disease, stage 3a (principal); I10 Essential (primary) hypertension
CPT/HCPCS: 99214

== ENCOUNTER 2025-05-01 13:46 | Outpatient (REF) | payer MEDICARE, SELFPAY ==
--- OUTSIDE RECORDS SUMMARY | 2025-05-01 14:23 | XMS_ITS | Encounter Summary ---
Author Organization [facility] Address [address] [place] [address] Phone Care Team Providers Care Demand Equipment Repairer Name Role Phone Michael Tuttle MD Primary Care Provider [phone] Encounter Details Date Type Department Care Team (Late st Contact Info) Description 11/11/2024 Documentation Only [facility], [address] [place] [address] [place], [place] [address] [place] [address] Social History Tobacco Use Types Packs/Day Years Used Date Smoking Tobacco: Never Smokeless Tobacco: Never Alcohol Use Standard Drinks/Week Comments No 0 (1 standard drink = 0.6 oz pur e alcohol) Comments Unknown Sex and Gender Information Value Date Recorded Sex Assigned at Not on file Legal Sex Female 5:02 PM EST Gender Identity Not on file Sexual Orientation Not on file documented as of this encounter Plan of Treatment Not on file documented as of this encounter Visit Diagnoses Not on filedocumented in this encounter Care Teams Demand Equipment Repairer Relationship Specialty Start Date End Date Michael Tuttle MD [address] [address] PCP - General Internal Medicine 11/07/24 documented as of this encounter
--- OUTSIDE RECORDS SUMMARY | 2025-05-01 14:23 | XMS_ITS | Clinical Summary ---
Author Organization [facility] Address [address] [place] [address] Phone Care Team Providers Care Tire Center Supervisor Name Role Phone Unavailable Primary Care Provider Unavailabl e Social History Tobacco Use Types Packs/Day Years Used Date Smoking Tobacco: Never Assessed Education Answer Date Recorded Are you interested in more education? Not on alicia e 10/07/2022 Are you concerned about learning? Not on file 10/07/2022 No 10/07/2022 No 10/07/2022 Digital Access Answer Date Recorded No 11/07/2022 No 11/07/2022 Reliable internet access at home? Not on file 11/07/2022 Device with a working camera? Not on file Comments Unknown Sex and Gender Information Value Date Recorded Sex Assigned at Not on file Legal Sex Female 11:28 AM EDT Gender Identity Not on file Sexual Orientation Not on file Plan of Treatment Not on file Medical Devices Not on file Additional Source Comments The information contained in this document represents components of the legal health record. It is not the complete legal health record.[facility]
--- OUTSIDE RECORDS SUMMARY | 2025-05-01 14:23 | XMS_ITS | Clinical Summary ---
Author Organization [address] [place] [address] Address [address] [place] [address] Phone Care Team Providers Care Transmitter Chief Name Role Phone Michael Tuttle MD Primary Care Provider [phone] Allergies Active Allergy Reactions Criticality Noted Date Comments Aspirin 03/01/2017 Codeine 01/12/2021 Lisinopril 02/25/2018 Other Hallucinations 03/17/2024 Tylenol With Codeine Medications insulin NPH, Isophane, (HumuLIN N NPH U-100 Insulin) 100 unit/mL injection Inject 20 Units into the skin at bedtime. 7 Active acetaminophen (TYLENOL) 500 mg capsule Take 1 capsule (500 mg total) by mouth every 6 (six) hours if needed for mild pain. 30 capsule 1 5 Active atorvastatin (LIPITOR) 80 mg tablet Take 1 tablet (80 mg total) by mouth 1 (one) time each day. at bedtime. 90 each 1 5 Active isosorbide mononitrate (IMDUR) 120 mg 24 hr tablet Take 1 tablet (120 mg total) by mouth 1 (one) time each day. Do not crush or chew. 90 each 2 5 06/17/19 26 Active multivitamin (Multiple Vitamins) tablet Take 1 tablet by mouth 1 (one) time each day. 60 tablet 1 5 Active carvediloL (COREG) 6.25 mg tablet Take by mouth 2 (two) times a day with meals. Active insulin lispro protamine-insuli n lispro (HumaLOG 50/50 KwikPen) 100 unit/mL (50-50) injection pen Inject 16 Units under the skin 2 (two) times a day before meals. Pens should be rolled between palms of hands ten times and inverted 180 degrees ten times prior to each use. Administer 5 to 15 minutes before a meal. 10 units before breakfast and 6 units before super Active cholecalciferol (VITAMIN D-3) 25 mcg (1,000 unit) tablet Take 1 tablet (1,000 Units total) by mouth 1 (one) time each day. 30 tablet 1 Active aspirin 81 mg tablet Take 81 mg by mouth 1 (one) time each day. Active Active Problems Problem Noted Date Diagnosed Date Mitral stenosis 03/17/2024 Assessment & Plan (11/10/2024 11:35 AM EDT): With history of mild mitral valve stenosis noted on echocardiogram from 2020, will update echocardiogram to reassess mitral stenosis. Orders: Transthoracic echocardiogram (TTE) complete with PRN contrast, bubble, strain, and 3D order panel; Future perflutren lipid microsphere (DEFINITY) 1.3 mL in sodium chloride 0.9% 8.7 mL injection Right leg pain 03/14/2022 Overview (03/17/2024): Last [...] will continue current therapies. Assessment & Plan (11/10/2024 11:35 AM EDT): Patient has a history of coronary artery disease status post late presenting STEMI in December 2020. She also has a history of aspirin allergy and previously on antiplatelet therapy with Plavix and then low dose Brilinta yet was unable to tolerate either of these medications. It is documented previously that these medications cause GI upset, today she reports that was causing vaginal spotting which completely resolved after discontinuing each. Patient to follow-up with an principle industrial hygienist to see if she is able to trial aspirin safely. She continues on statin, carvedilol and isosorbide. She denies chest pain, does report dyspnea on exertion which is unchanged. We discussed adding an additional antianginal such as amlodipine today, yet she states she was on this in the past and does not want to add another medication. She does not want to increase her isosorbide at this time either as she was looking to reduce it. Will update echocardiogram to assess EF. Patient advised to seek emergency medical attention by calling 911 if they were to develop severe dyspnea, chest pain that did not resolve with rest or nitroglycerin, or if they were to faint. Orders: Ambulatory referral to Allergy; Future Assessment & Plan (09/18/2024 3:50 PM EDT): Stable on Lipitor, stop the Brilinta. It is causing headaches she thinks. Stop same .start Plavix. Imdur was increased to 120 mg daily by her stained glass painter. Not sure whether that is causing headaches. 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 Her blood pressure is noted to be well controlled today with a reading of 128/70. She will continue her current antihypertensive medication regimen with amlodipine, carvedilol, and isosorbide. No changes to medical therapies. 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 Assessment & Plan (11/10/2024 11:35 AM EDT): Continue on statin. LDL one month ago was 36. I have reviewed with the patient the importance of a heart healthy lifestyle which includes eating a low-fat low-salt diet, getting regular exercise, maintaining a healthy weight, not smoking, and following up with routine medical care. 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 [address] [place] [phone] Conrado Rush MD 03/30/2025 Telephone Internal [facility] [place] [address] [place] [address] Michael Tuttle MD 03/23/2025 3:00 PM EDT Office Visit Internal [facility] [place] [address] [place] [phone] Michael Tuttle MD Type 2 diabetes mellitus with neurological manifestations ([facility] V24, [facility] V28) (Primary Dx); Coronary artery disease involving suquamish coronary artery of suquamish heart without angina pectoris; Hypercholesterolemia; Stage 3 chronic kidney disease, unspecified whether stage 3a or 3b CKD ([facility] V24, [facility] V28) 03/16/2025 Results Follow-Up [facility] - [facility] [address] [facility] [place] [phone] Michelle Galvez NP 02/19/2025 12:30 PM EDT Ancillary Procedure [facility] [address] [place] [phone] Mitral valve stenosis, unspecified etiology 01/29/2025 2:05 PM EDT - 01/29/2025 3:21 PM EDT Emergency [facility] [address] [place] [phone] Adam Blackburn MD Acute cystitis with hematuria (Primary Dx) Discharge Disposition: Home or Self Care from Last 3 Months Immunizations Immunization Administration Dates Next Due Influenza trivalent, 0.5mL (Fluad) 65yo and olde r 03/23/2025 Influenza trivalent, 0.5mL ( Fluzone High-dose) 66yo [...] kidney disease) stage 3, GFR 30-59 ml/min ([facility] V24, [facility] V28) 02/25/2018 DX:CKD (chronic kidney disea se) stage 3, GFR 30-59 ml/min ([facility]) DJD (degenerative joint dise ase) of knee 07/11/2011 DX:DJD (degenerative joint d isease) of knee GERD (gastroesophageal reflu x disease) 04/10/2017 DX:GERD (gastroesophageal re flux disease) Hyperlipidemia 04/10/2017 DX:Hyperlipidemi a Hypertension 02/25/2018 DX:Hypertension Hypomagnesemia 05/23/2017 DX:Hypomagnesemi a DM (obstructive sleep apnea) 02/25/2018 DX :DM (obstructive sleep apnea) Type 2 diabetes mellitus wit h renal manifestations (CMS/HCC V24, CMS/HCC V28) 02/25/2018 DX:Type 2 diabetes mellitus with renal manifestations (HCC) Carpal tunnel syndrome 09/11/2018 DX:Carpal tunnel syndrome [...] Sign Reading Time Taken Comments Blood Pressure 154/64 03/23/2025 3:10 PM EDT Pulse 86 03/23/2025 3:08 PM EDT Temperature 37.1 C (98.7 F) 03/23/2025 3:08 PM EDT Respiratory Rate 20 01/29/2025 1:08 PM EDT Oxygen Saturation 98% 03/23/2025 3:08 PM EDT Inhaled Oxygen Concentration - - Weight 82.4 kg (181 lb 9.6 oz) 03/23/2025 3:08 P M EDT Height 167.6 cm (5' 6 ) 03/23/2025 3:08 PM EDT Body Mass Index 29.31 03/23/2025 3:08 PM EDT Plan of Treatment Upcoming Encounters Date Type Department Care Team (Late st Contact Info) Description 06/16/2025 1:15 PM EST Office Visit Internal Medicine - [place] [address] [place] [address] Michael Tuttle MD [address] [place] [address] Health Maintenance Due Date Last Done Comments Diabetes: Annual Foot Exam 1945 DTaP,Tdap,and Td Vaccines (1 - Tdap) 10/28/1954 RSV Immunization Adult Patients (1 - 1-dose 75+ series) 10/28/2011 Zoster Vaccines (1 of 2) 01/11/2016 11/16/2015 Osteoporosis Screening (Bone Density Screening) 05/20/2022 Social Influencers of Health Screening 05/20/2022 Diabetes: Annual Retina Eye Exam 11/12/2024 11/13/2023 COVID-19 Vaccine ( season) 2025 03/08/2024, 03/13/2023, 03/08/2022, Additional history exists Diabetes: Blood Sugar Control Test (HGBA1C) 03/28/2025 09/26/2024, 04/28/2024, 08/22/2019 Falls Risk Assessment 09/18/2025 09/18/2024 Medicare Annual Wellness Visit 09/18/2025 09/18/2024 Hypertension/CHF/CAD Annual BMP Blood Test 01/29/2026 01/29/2025, 09/26/2024, 04/28/2024, Additional history exists Cholesterol Screening (Lipid Panel) 09/26/2029 09/26/2024, 04/28/2024, 04/28/2024, Additional history exists Pneumococcal Vaccine: 50+ Years Completed 05/09/2022, 03/26/2017, 11/16/2015 Depression Screening Completed 09/18/2024 Influenza Vaccine Completed 03/23/2025, , 03/13/2023, Additional history exists HIB Vaccines Aged Out [...] Procedure Name Priority Date/Time Associated Diagnosis Comments TRANSTHORACIC ECHOCARDIOGRAM (TTE) COMPLETE Routine 02/19/2025 1:24 PM EDT Mitral valve stenosis, unspecified etiology BEE URINE CULTURE TUBE STAT 01/29/2025 1:19 PM EDT URINALYSIS WITH REFLEX MICROSCOPIC AND CULTURE STAT 01/29/2025 1:19 PM EDT URINALYSIS WITH REFLEX MICROSCOPIC AND CULTURE STAT 01/29/2025 1:19 PM EDT CULTURE URINE STAT 01/29/2025 1:19 PM EDT CBC WITH AUTO DIFFERENTIAL STAT 01/29/2025 1:16 PM EDT BASIC METABOLIC PANEL STAT 01/29/2025 1:16 PM EDT CBC AND DIFFERENTIAL STAT 01/29/2025 1:16 PM EDT HEMOGLOBIN A1C Routine 09/26/2024 2:20 PM EDT Primary hypertension Hypercholesterolemi a Coronary artery disease involving suquam[place] coronary artery of suquamish heart without angina pectoris Diabetes mellitus type 1.5, managed as type 2 (CMS/HCC V24, CMS/[facility] V28) LIPID PANEL WITH REFLEX TO DIRECT LDL Routine 09/26/2024 2:20 PM EDT Primary hypertension Hypercholesterolemi a Coronary artery disease involving su[place]am[place] coronary artery of suquamish heart without angina pectoris Diabetes mellitus type 1.5, managed as type 2 (CMS/HCC V24, CMS/HCC V28) DIABETES EYE EXAM Routine 11/13/2023 from Last 3 Months or Most Recently Relevant to Health Maintenance Results * (ABNORMAL) TRANSTHORACIC ECHOCARDIOGRAM (TTE) COMPLETE (02/19/2025 1:24 PM EDT) Left Atrium Minor [place] 5.4 cm CV PACS Left Atrium Major [place] 4.8 cm CV PACS LA Area Sys (A2C) 18 cm2 CV PACS LA Area Sys (A4C) 15 cm2 CV PACS LA Volume (BP) 43 mL CV PACS RA Area 11.7 cm2 CV PACS RA 2D Volume 25 mL CV PACS Aortic Sinus Valsalva 3.1 cm CV PACS Ascending Aorta 3.4 cm CV PACS IVC Proximal 1.4 cm CV PACS IVC Proximal 0.6 cm CV PACS IVSD 1.0(A) 0.6 - 0.9 cm CV PACS LVIDD 4.0 3.8 - 5.2 cm CV PACS LVIDS 1.9(A) 2.2 - 3.5 cm CV PACS LVOT Diameter 2.3 cm CV PACS LVOT Mean [place] 0.7 m/s CV PACS LVOT Mean Grad 2 mmHg CV PACS LVOT Peak VTI 24.9 cm CV PACS LVOT Peak [place] 1.0 m/s CV PACS LVOT Peak Gradient 4 mmHg CV PACS LVPWD 1.0(A) 0.6 - 0.9 cm CV PACS MV E' Tissue Velocity Lateral 6 cm/s CV PACS MV E' Tissue Velocity Septal 4 cm/s CV PACS LVOT Area 4.2 cm2 CV PACS LVOT Stroke Volume 103 mL CV PACS MV Mean Gradient 2 mmHg CV PACS MR VTI 52.9 cm CV PACS MV VTI 49.0 cm CV PACS MR PISA Max Velocity 1.3 m/s CV PACS MR Peak Gradient 6 mmHg CV PACS Mitral Valve Max Velocity 1.3 m/s CV PACS MV Peak Gradient 7 mmHg CV PACS MV Area Planimetry 2.3 cm2 CV PACS MV Area Continuity Equation 2.1 cm2 CV PACS E Wave Deceleration Time 292(A) 119 - 242 ms CV PACS MV Peak A Sarwat 1.30 m/s CV PACS MV Peak E [place] 1.12 m/s CV PACS PV Acceleration Time 120 ms CV PACS PV Acceleration Time 120 ms CV PACS RV Diastolic Basal Dimension 1.7(A) 2.5 - 4.1 cm CV PACS RV S' 11 cm/s CV PACS TAPSE 20 mm CV PACS E/E' Ratio Septal 28 CV PACS E/E' Ratio Averaged 23 CV PACS Relative Wall Thickness ratio 0.50 CV PACS FS 53 % CV PACS LV Mass 2D 127 g CV PACS MV VTI:LVOT VTI ratio 2.0 CV PACS LVOT flow 291 mL/s CV PACS E/A Ratio 0.9 CV PACS E/E' Ratio Lateral 19 CV PACS BSA 1.99 m2 CV PACS LA Volume Index (BP) 22 mL/m2 CV PACS LVIDD Index 2.05 cm/m2 CV PACS LVIDS Index 0.97 cm/m2 CV PACS LV Mass Index 2D 65 44 - 88 g/m2 CV PACS LVOT Stroke Index 53 mL/m2 CV PACS RA 2D Volume Index 13(A) 15 - 27 mL/m2 CV PACS Ascending Aorta Index 1.74 cm/m2 CV PACS MV PHT 129 ms CV PACS MV Area PHT 1.7 cm2 CV PACS Anatomical Region Laterality Modality Ultrasound Narrative 03/16/2025 9:41 AM EDT Left ventricle cavity size is normal. Left ventricular systolic function is in the normal range with an ejection fraction of 60-65%. No regional LV wall motion abnormalities noted. Right ventricle cavity is small. Right ventricular systolic function is normal. Mitral Valve: There is mild regurgitation. There is mild stenosis. Left Ventricle Left ventricle cavity size is normal. Wall thickness is normal. Systolic function is normal with an ejection fraction of 60-65%. There are no regional LV wall motion abnormalities. There is Grade I (mild) diastolic dysfunction. Right Ventricle Right ventricle cavity is small. Systolic function is normal. Left Atrium Left atrium cavity size is normal. Right Atrium Right atrium cavity is small. IVC/SVC Inferior vena cava structure is normal. RA pressures is estimated to be 3 mmHg (IVC diameter <21 mm and decreases >50% during inspiration). Mitral Valve The leaflets are moderately thickened. There is mild annular calcification. There is calcification of the anterior leaflet subvalvular apparatus. There is calcification of the posterior leaflet subvalvular apparatus. There is mild regurgitation. There is mild stenosis. Tricuspid Valve Tricuspid valve structure is normal. Tricuspid regurgitation is inadequate for estimation of right ventricular systolic pressure. There is no significant tricuspid valve stenosis. Aortic Valve The aortic valve is probably trileaflet. The leaflets are not thickened and exhibit normal excursion. There is no regurgitation or stenosis. Pulmonic Valve The pulmonic valve was not well visualized. No significant pulmonic valve regurgitation. No significant pulmonary valve stenosis noted. Ascending Aorta The aorta appears normal in size. Pericardium Pericardium appears normal. There is no pericardial effusion. Study Details Overall the study quality was technically difficult. us Michelle Galvez NP CV ECHO PROCEDURES Final Resul t * (ABNORMAL) Urinalysis with reflex microscopic and culture (01/29/2025 1:19 PM EDT) Pathologist [facility] Specific [place] Urine 1.025 1.003 - 1.030 LAB URINALYSIS - AUTOMATED METHOD 01/29/2025 1:57 PM [facility] pH, Urine 7.0 5.0 - 8.0 pH LAB URINALYSIS - AUTOMATED METHOD 01/29/2025 1:57 PM [facility] Leukocytes, Urine Trace(A) Negative LAB URINALYSIS - AUTOMATED METHOD 01/29/2025 1:57 PM [facility] Nitrite, Urine Positive( A) Negative LAB URINALYSIS - AUTOMATED METHOD 01/29/2025 1:57 PM [facility] Protein, Urine >=300(A) <=Trace mg/dL LAB URINALYSIS - AUTOMATED METHOD 01/29/2025 1:57 PM [facility] Glucose, Urine 100(A) Negative mg/dL LAB URINALYSIS - AUTOMATED METHOD 01/29/2025 1:57 PM EDT [facility] Ketones, Urine Trace(A) Negative mg/dL LAB URINALYSIS - AUTOMATED METHOD 01/29/2025 1:57 PM T [facility] Urobilinogen, Urine 0.2 0.2 - 1.0 mg/dL LAB URINALYSIS - AUTOMATED METHOD 01/29/2025 1:57 PM [facility] Bilirubin, Urine Small(A) Negative LAB URINALYSIS - AUTOMATED METHOD 01/29/2025 1:57 PM [facility] Blood, Urine Large(A) Negative LAB URINALYSIS - AUTOMATED METHOD 01/29/2025 1:57 PM [facility] RBC, Urine >100(H) 0 - 4 /HPF 01/29/2025 1:57 PM [facility] WBC, Urine 20(H) 0 - 4 /HPF 01/29/2025 1:57 PM [facility] Squamous Epithelial, Urine 5 0 - 60 /LPF 01/29/2025 1:57 PM [facility] Bacteria, Urine Few(A) Negative /HPF 01/29/2025 1:57 PM [facility] Urine Urine specimen obtained by clean catch procedure / Unknown Non-blood Collection / Unknown 01/29/2025 1:19 PM EDT 01/29/2025 1:43 PM EDT us Braden Galindo MD LAB URINE ORDERABLES Final Result [facility] [address] [place] [address], * Bee urine culture tube (01/29/2025 1:19 PM EDT) Extra Tube Hold for add-ons. 01/29/2025 3:01 PM EDT [facility] Comment:Auto resulted. Urine Urine specimen obtained by clean catch procedure / Unknown Non-blood Collection / Unknown 01/29/2025 1:19 PM EDT 01/29/2025 1:42 PM EDT Braden Galindo MD LAB URINE ORDERABLES Final Result Performing Organization Address [facility]/ZIP Co de Phone Number [facility] [address] [place] [address], [place] [phone] * Culture urine (01/29/2025 1:19 PM EDT) Pathologist [facility] Culture, Urine No growth 01/30/2025 9:56 AM EDT [facility] Urine Urine specimen obtained by clean catch procedure / Unknown Non-blood Collection / Unknown 01/29/2025 1:19 PM EDT 01/29/2025 1:57 PM EDT Braden Galindo MD LAB MICROBIOLOGY - GENERAL ORDERABLES Final Result Performing Organization Address [facility]/ZIP Co de Phone Number [facility] [address] [place] [address], [place] [phone] * (ABNORMAL) CBC auto differential (01/29/2025 1:16 PM EDT) WBC 10.5 4.8 - 10.8 K/mcL LAB HEMETOLOGY METHOD 01/29/2025 1:34 PM EDT [facility] RBC 4.70 3.80 - 4.80 M/mcL LAB HEMETOLOGY METHOD 01/29/2025 1:34 PM EDT [facility] Hemoglobin 13.5 11.5 - 16.0 g/dL LAB HEMETOLOGY METHOD 01/29/2025 1:34 PM EDT [facility] Hematocrit 43.6 35.0 - 47.0 % LAB HEMETOLOGY METHOD 01/29/2025 1:34 PM EDT [facility] MCV 93.2 79.0 - 98.0 FL LAB HEMETOLOGY METHOD 01/29/2025 1:34 PM EDT [facility] MCH 28.8 27.0 - 32.0 pcg LAB HEMETOLOGY METHOD 01/29/2025 1:34 PM [facility] MCHC 31.0(L) 32.0 - 37.0 g/dL LAB HEMETOLOGY METHOD 01/29/2025 1:34 PM [facility] RDW 12.9 11.0 - 15.0 % LAB HEMETOLOGY METHOD 01/29/2025 1:34 PM [facility] Platelets 239 130 - 400 K/mcL LAB HEMETOLOGY METHOD 01/29/2025 1:34 PM [facility] MPV 10.5 7.0 - 11.0 FL LAB HEMETOLOGY METHOD 01/29/2025 1:34 PM [facility] NRBC 0.0 <1.0 % LAB HEMETOLOGY METHOD 01/29/2025 1:34 PM [facility] NRBC Absolute 0.00 <0.10 K/mcL LAB HEMETOLOGY METHOD 01/29/2025 1:34 PM [facility] Neutrophils Relative 66.6 % LAB HEMETOLOGY METHOD 01/29/2025 1:34 PM [facility] Lymphocytes Relative 24.6 % LAB HEMETOLOGY METHOD 01/29/2025 1:34 PM [facility] Monocytes Relative 7.2 % LAB HEMETOLOGY METHOD 01/29/2025 1:34 PM [facility] Eosinophils Relative 0.9 % LAB HEMETOLOGY METHOD 01/29/2025 1:34 PM [facility] Basophils Relative 0.5 % LAB HEMETOLOGY METHOD 01/29/2025 1:34 PM EDT [facility] Immature Granulocytes Relative 0.2 % LAB HEMETOLOGY METHOD 01/29/2025 1:34 PM EDT [facility] Neutrophils Absolute 6.98 1.50 - 7.00 K/[facility] LAB HEMETOLOGY METHOD 01/29/2025 1:34 PM EDT [facility] Lymphocytes Absolute 2.57 1.00 - 5.00 K/mcL LAB HEMETOLOGY METHOD 01/29/2025 1:34 PM EDT [facility] Monocytes Absolute 0.75 0.20 - 1.00 K/mcL LAB HEMETOLOGY METHOD 01/29/2025 1:34 PM EDT [facility] Eosinophils Absolute 0.09 0.00 - 0.50 K/mcL LAB HEMETOLOGY METHOD 01/29/2025 1:34 PM EDT [facility] Basophils Absolute 0.05 0.00 - 0.20 K/mcL LAB HEMETOLOGY METHOD 01/29/2025 1:34 PM EDT [facility] Immature Granulocytes Absolute 0.02 0.00 - 0.03 K/mcL LAB HEMETOLOGY METHOD 01/29/2025 1:34 PM EDT [facility] Blood Venous blood specimen / Unknown Venipuncture / Unknown 01/29/2025 1:16 PM EDT 01/29/2025 1:30 PM EDT us Braden Galindo MD LAB BLOOD ORDERABLES Final Result [facility] [address] [place] [address], * (ABNORMAL) Basic metabolic panel (01/29/2025 1:16 PM EDT) Sodium 139 133 - 145 mmol/L LAB CHEMISTRY METHOD 01/29/2025 2:00 PM EDT [facility] Potassium 4.2 3.5 - 5.5 mmol/L LAB CHEMISTRY METHOD 01/29/2025 2:00 PM [facility] Chloride 106 96 - 110 mmol/L LAB CHEMISTRY METHOD 01/29/2025 2:00 PM [facility] CO2 29 21 - 32 mmol/L LAB CHEMISTRY METHOD 01/29/2025 2:00 PM [facility] Anion Gap 4 3 - 11 LAB CHEMISTRY METHOD 01/29/2025 2:00 PM [facility] Glucose 179(H) 70 - 100 mg/dL LAB CHEMISTRY METHOD 01/29/2025 2:00 PM [facility] BUN 17 5 - 25 mg/dL LAB CHEMISTRY METHOD 01/29/2025 2:00 PM [facility] Creatinine 1.45(H) 0.50 - 1.10 mg/dL LAB CHEMISTRY METHOD 01/29/2025 2:00 PM [facility] eGFR 35(L) >=60 mL/min/1. 73m2 LAB CHEMISTRY METHOD 01/29/2025 2:00 PM [facility] Comment:Calculation based on the Chronic Kidney Disease Epidemiology Collaboration (CKD-EPI) equation refit without adjustment for race. BUN/Creatinine Ratio 11.7 LAB CHEMISTRY METHOD 01/29/2025 2:00 PM [facility] Calcium 9.5 8.5 - 10.5 mg/dL LAB CHEMISTRY METHOD 01/29/2025 2:00 PM [facility] Blood Venous blood specimen / Unknown Venipuncture / Unknown 01/29/2025 1:16 PM EDT 01/29/2025 1:30 PM EDT us Braden Galindo MD LAB BLOOD ORDERABLES Final Result [facility] [address] [place] [address], [place] [phone] * Lipid panel with reflex to direct LDL (09/26/2024 2:20 PM EDT) Cholesterol 101 0 - 200 mg/dL LAB CHEMISTRY METHOD 09/26/2024 7:38 PM EDT [facility] Triglycerides 106 0 - 150 mg/dL LAB CHEMISTRY METHOD 09/26/2024 7:38 PM EDT [facility] HDL 44 >=40 mg/dL LAB CHEMISTRY METHOD 09/26/2024 7:38 PM EDT [facility] LDL Calculated 36 0 - 100 mg/dL LAB CHEMISTRY METHOD 09/26/2024 7:38 PM EDT [facility] VLDL Cholesterol Tadeo 21.2 mg/dL LAB CHEMISTRY METHOD 09/26/2024 7:38 PM EDT [facility] Non HDL Chol. (LDL+VLDL) 57 <145 mg/dL LAB CHEMISTRY METHOD 09/26/2024 7:38 PM EDT [facility] Chol/HDL Ratio 2.3 0.0 - 4.4 LAB CHEMISTRY METHOD 09/26/2024 7:38 PM EDT [facility] Blood Venous blood specimen / Unknown Venipuncture / Unknown 09/26/2024 2:20 PM EDT 09/26/2024 2:20 PM EDT Michael Tuttle MD LAB BLOOD ORDERABLES Final Resul t [facility] [address] [place] [address], [place] [phone] * (ABNORMAL) Hemoglobin A1c (09/26/2024 2:20 PM EDT) Hemoglobin A1C 8.0(H) <6.5 % LAB CHEMISTRY METHOD 09/26/2024 9:34 PM EDT [facility] Mean Bld Glu Estim. 183 mg/dL LAB CHEMISTRY METHOD 09/26/2024 9:34 PM EDT [facility] Blood Venous blood specimen / Unknown Venipuncture / Unknown 09/26/2024 2:20 PM EDT 09/26/2024 2:20 PM EDT Michael Tuttle MD LAB BLOOD ORDERABLES Final Resul t [facility] [address] [place] [address], * Diabetes Eye Exam (11/13/2023) Diabetes: Annual Retina Eye Exam abstracted us Historical Provider HEALTH MAINTENANCE Final Result from Last 3 Months or Most Recently Relevant to Health Maintenance Insurance [employer] MEDICARE MEDICAID - [place] Care Teams Transmitter Chief Relationship Specialty Start Date End Date Michael Tuttle MD [address] [address] PCP - General Internal Medicine 03/03/21
--- OUTSIDE RECORDS SUMMARY | 2025-05-01 14:23 | XMS_ITS | Clinical Summary ---
Author Organization [facility], Address [address] [place] [address] [place] [address] Phone Care Team Providers Care Marketing Communications Associate Name Role Phone Michael Tuttle MD Primary Care Provider [phone] Allergies Active Allergy Reactions Criticality Noted Date [...] Date Last Done Comments Pneumococcal Vaccine: 50+ Years (1 of 2 - PCV) 10/28/1954 Diabetes: Ophthalmology Exam 09/20/2021 Diabetes: Pedal Pulse Checked 09/20/2021 Diabetes: Sensory Foot Exam 09/20/2021 Diabetes: Visual Foot Exam 09/20/2021 Diabetes: Hemoglobin A1C 12/26/2024 025, 09/26/2024, 04/28/2024 Influenza Vaccine (#1) 2025 03/21/2019 Hepatitis B Vaccine Aged Out No longe r eligible based on patient's age to complete this topic Insurance Medicare Medicare Medicare Member Subscriber Plan / Payer (Ef fective 2024-Present) Name:Gautam Susan Relation to Subscriber:Self Name:Susan Florez Payer ID:[id number] (NAIC) Type:Not on file Address: [place] [phone] Care Teams Marketing Communications Associate Relationship Specialty Start Date End Date Michael Tuttle MD [address] [address] PCP - General Internal Medicine 11/07/24
--- OUTSIDE RECORDS SUMMARY | 2025-05-01 14:23 | XMS_ITS | Data Portability ---
Author Organization [place] [facility], Allergy Address [address] [facility] [address] [place] [address] Care Team Providers Care Clipper And Turner Name Role Phone BRIAN VORA Primary Care Provider [phone] Assessment Encounter Date Assessment Date Assessment LastModified by Organization Details LastModified Time 01/25/2024 01/25/2024 Bilateral sensorineural hearing loss. Excellent discrimination scores. Suggest amplification for both ears [email or web address] Not available 01/25/2024 12:13:37 Plan of Treatment Reminders Order Date Submit Date Provider Last Modified By Organization Details Last Modified Time Details Appointments None record ed. Lab None record ed. Referral None record ed. Procedures None record ed. Surgeries None record ed. Imaging None record ed. Medication Orders None record ed. Patient TargetsNo targets recorded. Patient InstructionsNo instructions recorded. Reason for Referral None Reported. Results Created Date Observation Date Name Description Value Unit Range Abnormal Flag Note LastModifiedBy Organization Detail LastModifiedTime 01/28/20 24 audio gram No observ ation record ed. Not Available 01/09 13:46:23 Result Notes None recorded. Problems Name Problem SNOMED Code Status Onset Date Resolution Date Notes Provider Name and Address Organization Details Recorded Time Obstructi ve sleep apnea syndrome 43870160 Active 2018 Obstructiv e sleep apnea (adult) (pediatric ); Note: Date Diagnosed: 11/19/2018 11:35 AM (G47.33) Not Available [facility] 02:14:45 Xerostomi a 96021209 Active 2018 Dry mouth, unspecifie d; Note: Date Diagnosed: 11/19/2018 11:35 AM (R68.2) Not Available [facility] 4 02:13:46 Sensorine ural hearing loss of bilateral ears 434024329 Active 2023 CHEYENNE ROSS [place], [address],[place] [address], [place], [address] , [facility] 4 11:52:46 Problem Notes None recorded. Procedures Surgical History Date Name Laterality Status Provider Name and Address Organization Details Recorded Time 01/25/2024 Comp Audio with Tymps - 25996 & 09125 completed CHEYENNE ROSS [place], [address],[place] [address], [place], [address], [facility] 01/25/2024 11:52:34 Imaging Results None recorded. Procedure Notes None recorded. Medical Equipment None Reported. Allergies Allergen ID Allergen Name Allergen Category Reaction Reaction Severity Criticality Documentation Date Start Date Code Code System Note Provider Name and Address Organization Details Recorded Time 77394 aspirin medicatio n other Not available Not available 10/23/2023 1191 RxNorm React ion: unkno wn, unspe cifie d;; Not Available [facility] 4 00:49:20 06646 lisinopri l medicatio n other Not available Not available 10/23/2023 18503 RxNorm React ion: unkno wn, unspe cifie d;; Not Available [facility] 4 00:49:56 Medications Name Sig Start Date Stop Date Status Note LastModified by Organization Details LastModified Time atorvasta tin 80 mg tablet TAKE 1 TABLET BY MOUTH AT BEDTIME active Not Available Not Available No t Available carvedilo l 6.25 mg tablet TAKE 1 TABLET BY MOUTH TWICE DAILY active Not Available Not Available No t Available carvedilo l 12.5 mg tablet 01/24 completed Medicati on ID: [id number] D uration Value: 30 Brand Name: carvedil ol Send Method: E-Prescr ibed Sub s Allowed: subs OK Speci al Instruct ion: Take 1 tablet by mouth twice a day Medi cationGe nericNam e: carvedil ol Not Available Not Available Not Available oxybutyni n chloride ER 10 mg tablet,ex tended release 24 hr TAKE 1 TABLET BY MOUTH EVERY DAY 01/24 completed Not Available Not Available Not Available isosorbid e mononitra te ER 120 mg tablet,ex tended release 24 hr TAKE 1 TABLET BY MOUTH DAILY 01/24 completed Not Available Not Available Not Available Ear Wax Removal Kit 6.5 % drops INSTILL 5 DROPS INTO BOTH EARS TWICE DAILY FOR 3 DAYS active Not Available Not Available No t Available amlodipin e 10 mg tablet TAKE 1 TABLET BY MOUTH EVERY DAY active Not Available Not Available No t Available Humulin N NPH U-100 Insulin (isophane susp) 100 unit/mL subcutane ous 01/24 completed Not Available Not Available Not Available Vitamin D3 25 mcg (1,000 unit) capsule 01/24 completed Medicati on ID: [id number] B rand Name: Vitamin D3 Send Method: E-Prescr ibed Sub s Allowed: subs OK Medic ationGen ericName : Vitamin D3 Not Available Not Available Not Available Humalog KwikPen (U-100) Insulin 100 unit/mL subcutane ous 2017 active Medicati on ID: [id number] D uration Value: 90 Brand Name: Humalog KwikPen Insulin Send Method: E-Prescr ibed Sub s Allowed: subs OK Medic ationGen ericName : Humalog KwikPen Insulin Not Available Not Available Not Available Accu-Chek Suzanne Plus test strips 2018 active Medicati on ID: [id number] D uration Value: 90 Brand Name: Accu-Steph k Suzanne Plus test strp Sen d Method: E-Prescr ibed Sub s Allowed: subs OK Medic ationGen ericName : Accu-Steph k Suzanne Plus test strp Not Available Not Available Not Available Brilinta 60 mg tablet TAKE 1 TABLET BY MOUTH TWICE DAILY active Not Available Not Available No t Available Vitals Date Recorded Body height Body mass index (BMI) Body weight Provider Name and Address Organization Details Last Updated DateTime 01/25/2024 170.18 cm 32.9 kg/m2 00807.4 g Myriam Wu [place] - [facility] 01/25/2024 11:57:51 Social History None recorded. Functional Status Question Answer Note LastModified by Organization D etails LastModified Time What is your level of alcohol consumption? None [email or web address] Information not available 01/25/2024 Mental Status None recorded. Family History Nothing Reported. Medical History Condition Response Arthritis Y Hypertension Y Sleep Disorder Y High Cholesterol Y Kidney Disease Y Gynecological HistoryNo gynecological history recorded. Obstetrics History GPAL:G 0 P 0 0 0 0 Immunizations Vaccine Type Date Status Note Provider Nam e and Address Organization Details Recorded Time influenza nasal, unspecified formulation 3 completed Myriam simmons [place] - [facility] 01/25/2024 11:35:09 Past Encounters Encounter ID Performer Location Encounter Start Date Encounter Closed Date Diagnosis/Indication Diagnosis SNOMED-CT Code Diagnosis ICD10 Code Diagnosis IMO Codes Diagnosis Note [id number] LACEY HAN MD [facility] of [address] [address] 01/25/2024 10:33:55 01/25/2024 12:08:57 Sensorineural hearing loss of bilateral ears 405976535 H90.3 Audiologic al evaluation results: Right ear: Mildto moderately severe SNHL with excellent word recognitio n. Left ear: Severeo moderately severe SNHL with excellent word recognitio n. Tympanomet ry: Right Ear:Type A Left Ear:Type ARec,: [place] [id number] CHEYENNE ROSS [place], CCC-A [place] [address] [facility] [address] [address] 02/13/2024 15:10:54 02/14/2024 07:44:43 Sensorineural hearing loss of bilateral ears 173085949 H90.3 Patient here today for an initial/ consult regarding hearing aids. She was under the impression that she would not have to pay for hearing aids. I explained that was not the case. She does have a discount thru her insurance and she has decided to go there. ([facility]). I did stress to her that the aids would not be free there either but they do have a discount program.Yisel alonso has their phone number and a copy of her hearing test. Cheyenne Ross MA CCC-A Health Concerns Section Related Observation LastModified by Organization Detai ls LastModified Time None Recorded Concern Status LastModified by Organization Details LastModified Time None Recorded Advance Directives Directive None Recorded Payers Insurance Date Sequence Insurance Name Policy Number Policy Mi Covered Member ID Mi Member ID Guarantor Name 02/10/2024 1 [facility] (MEDICARE REPLACEMENT/A DVANTAGE - HMO) [id number] Susan Florez [id number] Susan Florez Notes Date Note Type Note Provider Name and Address Organization Details Recorded Time 01/25/2024 text/html ROS as noted in the HPI Patient notes difficulty in background situations, TV and telephone. No tinnitus or vertigo. Denies chest pain or shortness of breath LACEY LUNA MD [address] [place] [address],[address], [address], [facility] - [facility] 01/25/2024 12:13:48 02/13/2024 text/html Longstanding SNHL bilaterally CHEYENNE ROSS [place], CCC-A [address] [place] [address],[address], [address], [place] - [facility] 02/13/2024 15:37:39 OBGyn Episode No OBEpisode recorded.
--- OUTSIDE RECORDS SUMMARY | 2025-05-01 14:23 | XMS_ITS | Encounter Summary ---
Author Organization [facility] Address [address] [place] [address] Care Team Providers Care Pin Cleaner Name Role Phone Michael Tuttle MD Primary Care Provider [phone] Encounter Details Date Type Department Care Team (Late st Contact Info) Description 03/16/2025 Results Follow-Up [facility] [address] [place] [phone] Michelle Galvez NP [address] [place] [address] [address] [place] [address] Social History Tobacco Use Types Packs/Day Years [...] PM EDT documented as of this encounter Plan of Treatment Upcoming Encounters Date Type Department Care Team (Late st Contact Info) Description 06/16/2025 1:15 PM EST Office Visit Internal Medicine - [place] [address] [facility] [address] [place] [phone] Michael Tuttle MD [address] [address] documented as of this encounter Visit Diagnoses Not on filedocumented in this encounter Additional Health Concerns Assessment Noted Time PHQ-9 Depression Total Score: 1 09/19/19 25 3:21 PM EDT A fall risk assessment has been complete d for the patient 09/18/2024 3:18 PM EDT documented as of this encounter Care Teams Pin Cleaner Relationship Specialty Start Date End Date Michael Tuttle MD [address] [address] PCP - General Internal Medicine 03/03/21 documented as of this encounter
--- OUTSIDE RECORDS SUMMARY | 2025-05-01 14:23 | XMS_ITS | Clinical Summary ---
Author Organization [employer] Address [address] [facility] [address] [place] [address] Care Team Providers Care Wood Boat Builder Supervisor Name Role Phone Unavailable Primary Care [...] 75+ series) 10/28/2011 COVID-19 Vaccine ( - 2024-2 6 season) 2025 Influenza Vaccine (#1) 2025 HIB Vaccines Aged Out No longer eligi [...] patient's age to complete this topic Insurance [facility]
--- OUTSIDE RECORDS SUMMARY | 2025-05-01 14:23 | XMS_ITS | Encounter Summary ---
Author Organization [facility] Address [address] [place] [address] Care Team Providers Care Body Design Checker Name Role Phone Michael Tuttle MD Primary Care Provider [phone] Reason for Visit * Reason Onset Date Comments Medication 04/23/2025 Encounter Details Date Type Department Care Team (Late st Contact Info) Description 04/23/2025 Telephone [facility] [address] [place] [phone] Conrado Rush MD [address] [place] [address] [address] [place] [phone] Social History Tobacco Use Types Packs/Day Years [...] as of this encounter Progress Notes * Michelle Galvez NP - 04/23/2025 10:31 AM EST That's great , thank you! * Roxane Anderson RN - 04/23/2025 10:12 AM EST Susan Florez is a 89 y.o. female, followed by Dr. Burrows/ CONNIE Ocasio with cardiac history of coronary artery disease status post late presenting STEMI in December 2020, arterial hypertension, and obstructive sleep apnea previously on CPAP. She was last seen in the office on 11/10/24. At that time, it was noted the patient was prescribed Plavix and stopped taking it due to causing vaginal bleeding, which also occurred with Brilinta. The note mentioned she did not wish to take either medications. It was noted she was going to follow up with an Bag Washer to see if she is able to trial aspirin safely. I spoke to Kylee, the patient's daughter. On 04/20/25 the patient went to see the Bag Washer in [place], [place]. They determined she is not allergic to Aspirin and started taking Aspirin 81mg daily on 04/20/25. I updated her medication module. * Johnnie Freeman - 04/23/2025 9:37 AM EST Patients daughter called back , states patient was on brilinta and clopidogrel and had side effects. Was then put on baby aspirin. * Chemo Glasgow - 04/23/2025 9:29 AM EST Patients daughter Kylee states patient is now taking baby aspirin. Dr. Tuttle ordered the new medication. He ordered her to be tested for see if she is allergic to the medication and she is not. This is in place of her blood thinners. documented in this encounter Plan of Treatment Upcoming Encounters Date Type Department Care Team (Late st Contact Info) Description 06/16/2025 1:15 PM EST Office Visit Internal Medicine - [address] [place] [address] Michael Tuttle MD [address] [address] documented as of this encounter Visit Diagnoses Not on filedocumented in this encounter Historical Medications * This list may reflect changes made after this encounter. aspirin 81 mg tablet Take 81 mg by mouth 1 (one) time each day. added in this encounter Additional Health Concerns Assessment Noted Time PHQ-9 Depression Total Score: 1 09/19/19 3:21 PM EDT A fall risk assessment has been complete d for the patient 09/18/2024 3:18 PM EDT documented as of this encounter Care Teams Body Design Checker Relationship Specialty Start Date End Date Michael Tuttle MD [address] [address] PCP - General Internal Medicine 03/03/21 documented as of this encounter
--- OUTSIDE RECORDS SUMMARY | 2025-05-01 14:23 | XMS_ITS | Encounter Summary ---
Author Organization [facility] Address [address] [place] [address] Care Team Providers Care Family Court Registrar Name Role Phone Michael Tuttle MD Primary Care Provider [phone] Reason for Visit * Reason Onset Date Comments Parag - Referral 03/30/2025 Encounter Details Date Type Department Care Team (Late st Contact Info) Description 03/30/2025 Telephone Internal Medicine - [place] [address] [facility] [address] [place] [phone] Michael Tuttle MD 175 [facility] [address] [place], [place] [phone] Social History Tobacco Use Types Packs/Day Years [...] as of this encounter Progress Notes * Sugey Box MA - 04/24/2025 11:27 AM EST FAXED TO [phone] * Trudy Prado - 04/23/2025 9:58 AM EST Patient called and requested last office visit to be sent over and sent over to [facility] along with thereferral. Please advise [phone] * Shira Stiles - 03/30/2025 1:32 PM EDT Pt daughter called and requested an OBGYN referral for pt. She stated pt is still bleeding on and off and does not know why, it has been going on for awhile. No pain just bleeding. Please advise. Call back daughter [phone] documented in this encounter Plan of Treatment Upcoming Encounters Date Type Department Care Team (Late st Contact Info) Description 06/16/2025 1:15 PM EST Office Visit Internal Medicine - [place] [address] [address] Michael Tuttle MD [address] [address] documented as of this encounter Visit Diagnoses Not on filedocumented in this encounter Additional Health Concerns Assessment Noted Time PHQ-9 Depression Total Score: 1 09/19/19 25 3:21 PM EDT A fall risk assessment has been complete d for the patient 09/18/2024 3:18 PM EDT documented as of this encounter Care Teams Family Court Registrar Relationship Specialty Start Date End Date Michael Tuttle MD 175 [facility] [address] [place] [address] PCP - General Internal Medicine 03/03/21 documented as of this encounter
--- OUTSIDE RECORDS SUMMARY | 2025-05-01 14:23 | XMS_ITS | Patient Health Record ---
Author Organization [facility] Address [address] [place] [address] Care Team Providers Care Analysis Engineer Name Role Phone Parag TERRY, Michael Primary Care Provider Michelle Tolentino Unavailable [phone] Allergies Allergen (clinical drug ingredient) Drug/Non Drug Allergy documented on EMR Reaction Allergy Type Onset Date Status aspirin Aspirin mouth foams Drug Allergy Activ e fluticasone Flonase itch Drug Allergy Activ e Shrimp/Shell Fish tingle & mouth swell Drug Allergy Active ketoconazole Ketoconazole Itching, swelling Drug Allergy Active Results Component Value Reference Range Notes HEMOGLOBIN A1C (GLYCOHEMOGLO BIN) Reviewed date:04/02/2025 01:36:31 PM Interpretation: Performing Lab: Notes/Report: HEMOGLOBIN A1C % (HH) 8.0 Reason For Referral No Information Medications Medication SIG (Take, Route, Frequency, Duration) Notes Start Date End Date Status Extra Depth Orthopedic Shoes, (1) Pair With (3) Pair Custom Heat Molded Multidensity Innersoles Dx: NIDDM/PVD(E11.51), Hammertoe Foot Deformity(M20.41,M20. 42), Preulcerative Skin Lesion(s)(L85.1) Wear Daily; Duration: 365 days Active Benicar 20 MG Oral; Duration: 30 Not-Taking HumuLIN N Not-Taking amLODIPine Besylate 10 MG take 1 tablet by mouth once daily Oral; Duration: 90 Not-Taking Carvedilol Active Extra Depth Diabetic Shoes with 3 Pair Custom heat-molded multi-density innersoles for 1 year Dx: 10/31/2016 Not-Taking Vitamin D3 Active Losartan Potassium 50 MG take 1 tablet b y mouth once daily Oral; Duration: 90 Not-Taking AmLactin 12 % 1 application to affected area Externally Twice a day to feet; Duration: 30 days 04/02/2025 Active Atorvastatin Calcium Active hydroCHLOROthiazide 12.5 MG take 1 table t by mouth once daily Oral; Duration: 30 Not-Taking Isosorbide Mononitrate Active Vitamin D Not-Taking Simvastatin 10 MG Oral; Duration: 90 Not-Taking Triamcinolone Acetonide 0.1 % 1 application to both feet Externally daily; Duration: 30 days 01/05/2025 Active Multivitamin Active Omeprazole 20 MG Oral; Duration: 30 Not-Taking Ketoconazole 2 % 1 application Apply a thin layer to externally to feet, even between toes Twice a day; Duration: 30 days Active Olmesartan Medoxomil 20 MG Oral; Duration: 30 Not-Taking Immunizations Vaccine Route Administration Date Status Comme nts Influenza Unknown 04/03/2024 Administered Influenza Unknown 03/11/2025 Administered Social History Tobacco Use: Social History Observation Description Date Details (start date - stop date) Never Smoker NA - NA Tobacco use other than smoking: Question Answer Notes Are you an other tobacco user? No Tobacco Control (Standard) Question Answer Notes Tobacco use: Nonsmoker Additional Findings: Tobacco non-user Current no nsmoker AUDIT-C (Standard) Question Answer Notes Did you have a drink containing alcohol in the p ast year? No Points 0 Interpretation Negative Problems Problem Type SNOMED Code ICD Code Onset Dates Problem Status W/U Status Risk Notes Problem Type 2 diabetes mellitus with peripheral angiopathy (720237788) Type 2 diabetes mellitus with diabetic peripheral angiopathy without gangrene (E11.51) Active confirmed Q7(A), Q8(2B), Q9(1B,2C) Problem Acquired hammer toe of right foot (0937482249376 105) Other hammer toe(s) (acquired), right foot (M20.41) Active confirmed Problem Acquired hammer toe of left foot (3980434842769 103) Other hammer toe(s) (acquired), left foot (M20.42) Active confirmed Vital Signs Blood pressure diastolic 70 mm Hg 04/02/2025 Height 5 ft 7 in in 04/02/2025 Blood pressure systolic 130 mm Hg 04/02/2025 Weight 180 lbs 04/02/2025 BMI 28.19 kg/m2 04/02/2025 Encounters Encounter Location Date Provider Diagnosis [address] [address] 01/01/2025 Michelle Pgaan Type 2 diabetes mellitus with diabetic peripheral angiopathy without gangrene E11.51 ; Tinea unguium B35.1 ; Pain in right toe(s) M79.674 ; Pain in left toe(s) M79.675 ; Tinea pedis of both feet B35.3 ; Other hammer toe(s) (acquired), left foot M20.42 and Other hammer toe(s) (acquired), right foot M20.[address] [address] 04/02/2025 Michelle Pagan Other hammer toe(s) (acquired), right foot M20.41 ; Xerosis of skin L85.3 ; Type 2 diabetes mellitus with diabetic peripheral angiopathy without gangrene E11.51 ; Tinea unguium B35.1 ; Pain in right toe(s) M79.674 ; Pain in left toe(s) M79.675 ; Tinea pedis of both feet B35.3 and Other hammer toe(s) (acquired), left foot M20.[address] [facility] [address] 11/10/2024 Michelle Pagan [address] [address] 01/05/2025 Michelle Pagan Assessments Encounter Date Diagnosis (ICD Code) Assessment Notes Treatment Notes Treatment Clinical Notes Section Notes 01/01/2025 Type 2 diabetes mellitus with diabetic peripheral angiopathy without gangrene (ICD-10 - E11.51) Q7(A), Q8(2B), Q9(1B,2C) 04/02/2025 Other hammer toe(s) (acquired), right foot (ICD-10 - M20.41) Patient Educated with: DIABETIC FOOT CARE INSTRUCTIONS.p df (DIABETIC FOOT CARE INSTRUCTIONS.p df) 04/02/2025 Xerosis of skin (ICD-10 - L85.3) 04/02/2025 Type 2 diabetes mellitus with diabetic peripheral angiopathy without gangrene (ICD-10 - E11.51) Q7(A), Q8(2B), Q9(1B,2C) 01/01/2025 Tinea unguium (ICD-10 - B35.1) 01/01/2025 Pain in right toe(s) (ICD-10 - M79.674) 04/02/2025 Tinea unguium (ICD-10 - B35.1) 04/02/2025 Pain in right toe(s) (ICD-10 - M79.674) 01/01/2025 Pain in left toe(s) (ICD-10 - M79.675) 01/01/2025 Tinea pedis of both feet (ICD-10 - B35.3) Patient Educated with: ATHELETE .pdf (ATHELETE .pdf) 04/02/2025 Pain in left toe(s) (ICD-10 - M79.675) 04/02/2025 Tinea pedis of both feet (ICD-10 - B35.3) 01/01/2025 Other hammer toe(s) (acquired), left foot (ICD-10 - M20.42) 01/01/2025 Other hammer toe(s) (acquired), right foot (ICD-10 - M20.41) Patient Educated with: DIABETIC FOOT CARE INSTRUCTIONS.p df (DIABETIC FOOT CARE INSTRUCTIONS.p df) 04/02/2025 Other hammer toe(s) (acquired), left foot (ICD-10 - M20.42) Plan Of Treatment Pending Test Test Name Order Date [id number] NAIL, 6 OR MORE 10/31/2016 [id number] NAIL, 6 OR MORE 01/30/2017 [id number] SKIN LESIONS, OVER 4 11/01/19 17 [id number] SKIN LESIONS, OVER 4 01/31/20 17 Next Appt Details Provider Name:Michelle plummer, 07/09/2025 01:30:00 PM, [address] [facility], [place], [address], Insurance Providers Payer Name Payer Address Payer Phone Subscriber Number Group Number Insured Name Patient Relationship to Insured Coverage Start Date Coverage End Date AARP Medicare Complete [address] [address] [place] [address] [id number] Susan Florez Self - patient is the insured Medical (General) History Medical History History ICD Code Osteoarthritis Diabetic Hypertension Kidney disease Reflux ( GERD) chronic sinusitis Measles Mumps Chicken pox Cataracts Gall bladder problems Heart disease Surgical History Surgery Date(Month/Year) gall bladder over 10years carpal tunnel surgery-both hand eye surgery 2015 Hospitalization History Reason Date(Month/Year) possible stroke 11/02
[2025-05-01 18:59] LABS: Anion Gap 11 (12-20); Blood Urea Nitrogen 17 mg/dL (9-16); Calcium 9.8 mg/dL (8.4-10.2); Carbon Dioxide 28 mmol/L (22-29); Chloride 108 mmol/L (96-108); Estimated Glomerular Filt Rate 40; Potassium 4.2 mmol/L (3.3-5.1); Sodium 143 mmol/L (135-145)
[2025-05-01 19:05] LABS: Total Protein Urine Random < 7 mg/dL (<12)
== END 2025-05-01 13:47 | disposition home or self-care (01) ==
LOC: HO.HKASLDS 13:46
PROVIDERS: PCP Internal Medicine; Visit Provider Internal Medicine Nephrology
DX: I12.9 Hypertensive chronic kidney disease with stage 1 through stage 4 chronic kidney disease, or unspecified chronic kidney disease (principal); N18.31 Chronic kidney disease, stage 3a
CPT/HCPCS: 36415; 80051; 82310; 82565; 82570; 84156; 84520

== ENCOUNTER 2025-05-05 11:09 | Outpatient (AMB) | payer OTHER, SELFPAY ==
--- NOTE | 2025-05-05 11:13 | HO.NEPHOV_ITS ---
Vital Signs 05/05/25 11:16 Height 5 ft 7 in Weight 184 lb 4 oz BMI 28.9 BP 146/70 H Blood Pressure Location Lt brachial Position Sitting Pulse 87 Pulse Source Pulse Oximeter Pulse Oximetry (%) 95 Oxygen Delivery Method Room Air Intake Visit Reasons: follow up-Conf Laboratory Specialist Required: No Accompanied by: Daughter Allergies clopidogrel Adverse Reaction (Verified 05/05/25 11:16) Migraine ticagrelor (From Brilinta) Adverse Reaction (Verified 05/05/25 11:16) Migraine HPI Comments Details: I had the privilege of seeing Susan in follow up of her CKD and hypertension. She has H/O CAD . She is not any blood thinners . She says she is allergic to aspirin and Plavix. She was on Brillinta for some time but was discontinued. She was asking whether she should be on it. She does not have any nausea, vomiting, diarrhea, dizziness, chest pain, SOB, PND, orthopnea, edema, UTI's, hematuria, recent antibiotic use, intake of NSAID's. Her blood sugars are not well controlled. Her recent BP has been close to goal. [facility] Medical History (Updated 10/30/24 @ 19:29 by Steve Montenegro MD) History of heart attack Hypertension Chronic kidney disease, stage 3a Surgical History History of appendectomy Family History Paternal Aunt Diabetes Paternal Uncle Diabetes Maternal Aunt Diabetes Maternal Uncle Diabetes Sister Diabetes Social History Alcohol intake: never Patient Tobacco Use Status: Never used Tobacco Review of Systems Const All systems reviewed & are unremarkable except as noted in HPI and below Physical Exam Vital Signs: Last Vital Signs Pulse 87 05/05/25 11:16 BP 146/70 H 05/05/25 11:16 Pulse Ox 95 05/05/25 11:16 Oxygen Delivery Method Room Air 05/05/25 11:16 BMI result Body Mass Index 28.9 Const General: comfortable and no acute distress Orientation/consciousness: patient oriented x3 HEENT Head: Yes normocephalic Mouth: Normal oral and palatal mucosa present Eyes EOM: EOMs intact bilaterally Neck Neck: Yes supple Resp Auscultation: clear to auscultation bilaterally Cardio Jugular venous distension: no JVD Rate: regular rate GI Palpation (GI): Soft to palpation Auscultation: normal bowel sounds General: Yes no CVA tenderness Back/Spine/Pelvis Back: no CVA tenderness Skin General skin exam: no rashes or lesions noted Neuro General: patient oriented x3 and moves all extremities Extrem General: Yes no pedal edema Results Reviewed Nephrology Results: Sodium, (135-145) 143 mmol/L 05/01/25 Potassium, (3.3-5.1) 4.2 mmol/L 05/01/25 Chloride, (96-108) 108 mmol/L 05/01/25 Carbon Dioxide, (22-29) 28 mmol/L 05/01/25 BUN, (9-16) 17 mg/dL H 05/01/25 Creatinine, (0.5-1.4) 1.25 mg/dL 05/01/25 Calcium, (8.4-10.2) 9.8 mg/dL 05/01/25 Urine Creatinine 103.10 mg/dL 05/01/25 Protein/Creatinin Ratio TNP 05/01/25 Assessment & Plan Assessment & Plan (1) Chronic kidney disease, stage 3a: Code(s): N18.31 - Chronic kidney disease, stage 3a Category: Medical (2) Hypertension: Code(s): I10 - Essential (primary) hypertension Category: Medical Qualifiers: Hypertension type: primary hypertension Qualified Code(s): I10 - Essential (primary) hypertension Plan Has CKD 3 due to vascular disease with contribution from DM BP needs to be at goal. Not on ACEI/ARB or SGLT2 i; On ASA Continue good hydration, low sodium and avoid NSAID's Shall consider doing Doppler renal arteries with time Would be a great candidate for Jardiance Answered all questions. F/U given Orders: Orders Electrolytes 6 Months I10 - Essential (primary) hypertension, N18.31 - Chronic kidney disease, stage 3a Blood Urea Nitrogen 6 Months I10 - Essential (primary) hypertension, N18.31 - Chronic kidney disease, stage 3a Creatinine 6 Months I10 - Essential (primary) hypertension, N18.31 - Chronic kidney disease, stage 3a Coding Level of Care Code Est Pt Level 4 (49337) Diagnoses Chronic kidney disease, stage 3a N18.31 Primary hypertension I10 Hypertension type: primary hypertension
[2025-05-05 11:16] VITALS: BP 146/70; PULSE 87; O2SAT 95; BMI 28.9
--- OUTSIDE RECORDS SUMMARY | 2025-05-05 14:44 | XMS_ITS | Clinical Summary ---
Author Organization [facility] Address [address] [place] [address] Phone Care Team Providers Care It Disaster Recovery Manager Name Role Phone Unavailable Primary Care Provider [...] It is not the complete legal health record.[facility]
--- OUTSIDE RECORDS SUMMARY | 2025-05-05 14:44 | XMS_ITS | Clinical Summary ---
Author Organization [employer] Address [address] [facility] [address] [place] [address] Care Team Providers Care Masking Machine Operator Name Role Phone Unavailable Primary Care Provider [...] patient's age to complete this topic Insurance [facility]
--- OUTSIDE RECORDS SUMMARY | 2025-05-05 14:44 | XMS_ITS | Encounter Summary ---
Author Organization [facility] Address [address] [place] [address] Care Team Providers Care Consulting Engineer Name Role Phone Michael Tuttle MD Primary Care Provider [phone] Reason for Visit * Reason Onset Date Comments Medication 04/23/2025 Encounter Details Date Type Department Care Team (Late st Contact Info) Description 04/23/2025 Telephone [facility] [address] [place] [phone] Conrado Rush MD [address] [place] [address] [address] [place] [phone] Social History Tobacco Use Types Packs/Day Years [...] was going to follow up with an Milking System Installer to see if she is able to trial aspirin safely. I spoke to Kylee, the patient's daughter. On 04/20/25 the patient went to see the Milking System Installer in [place], [place]. They determined she is not allergic [...] PM EST Office Visit Internal Medicine - [address] [place] [address] Michael Tuttle MD [address] [address] documented as of this encounter Visit Diagnoses [...] documented as of this encounter Care Teams Consulting Engineer Relationship Specialty Start Date End Date Michael Tuttle MD [address] [address] PCP - General Internal Medicine 03/03/21 documented as of this encounter
--- OUTSIDE RECORDS SUMMARY | 2025-05-05 14:44 | XMS_ITS | Encounter Summary ---
Author Organization [facility] Address [address] [place] [address] Care Team Providers Care Travel Pta Name Role Phone Michael Tuttle MD Primary Care Provider [phone] Encounter Details Date Type Department Care Team (Late st Contact Info) Description 03/16/2025 Results Follow-Up [facility] [address] [place] [phone] Michelle Galvez NP [address] [place] [address] [address] [place] [address] Social History Tobacco Use Types [...] PM EST Office Visit Internal Medicine - [place] [address] [place] [phone] Michael Tuttle MD [address] [address] documented as of this encounter Visit Diagnoses Not on filedocumented in this encounter Additional Health Concerns Assessment Noted Time PHQ-9 Depression Total Score: 1 09/19/19 25 3:21 PM EDT A fall risk assessment has been complete d for the patient 09/18/2024 3:18 PM EDT documented as of this encounter Care Teams Travel Pta Relationship Specialty Start Date End Date Michael Tuttle MD [address] [address] PCP - General Internal Medicine 03/03/21 documented as of this encounter
--- OUTSIDE RECORDS SUMMARY | 2025-05-05 14:44 | XMS_ITS | Encounter Summary ---
Author Organization [facility] Address [address] [place] [address] Care Team Providers Care Unit Secretary Name Role Phone Michael Tuttle MD Primary Care Provider [phone] Reason for Visit * Reason Onset Date Comments Parag - Referral 03/30/2025 Encounter Details Date Type Department Care Team (Late st Contact Info) Description 03/30/2025 Telephone Internal Medicine - [place] [address] [facility] [address] [place] [phone] Michael Tuttle MD 175 [facility] [address] [place], [place] [id number] Social History Tobacco Use Types Packs/Day Years [...] - 04/24/2025 11:27 AM EST FAXED TO [phone] * Trudy Prado - 04/23/2025 9:58 AM EST Patient called and requested last office visit to be sent over and sent over to [facility] along with thereferral. Please advise [phone] * Shira Stiles - 03/30/2025 1:32 PM EDT Pt daughter called and requested an OBGYN referral for pt. She stated pt is still bleeding on and off and does not know why, it has been going on for awhile. No pain just bleeding. Please advise. Call back daughter [phone] documented in this encounter Plan of Treatment Upcoming Encounters Date Type Department Care Team (Late st Contact Info) Description 06/16/2025 1:15 PM EST Office Visit Internal Medicine - [place] [address] [address] Michael Tuttle MD [address] [address] documented as of this encounter Visit Diagnoses Not on filedocumented in this encounter Additional Health Concerns Assessment Noted Time PHQ-9 Depression Total Score: 1 09/19/19 25 3:21 PM EDT A fall risk assessment has been complete d for the patient 09/18/2024 3:18 PM EDT documented as of this encounter Care Teams Unit Secretary Relationship Specialty Start Date End Date Michael Tutlte MD 175 [facility] [address] [place] [address] PCP - General Internal Medicine 03/03/21 documented as of this encounter
--- OUTSIDE RECORDS SUMMARY | 2025-05-05 14:44 | XMS_ITS | Patient Health Record ---
Author Organization [facility] Address [address] [place] [address] Care Team Providers Care Affiliate Marketing Manager Name Role Phone Parag TERRY, Michael Primary Care Provider Michelle Tolentino Unavailable [phone] Allergies Allergen (clinical drug ingredient) Drug/Non Drug [...] Type 2 diabetes mellitus with peripheral angiopathy (809381954) Type 2 diabetes mellitus with diabetic peripheral angiopathy without gangrene (E11.51) Active confirmed Q7(A), Q8(2B), Q9(1B,2C) Problem Acquired hammer toe of right foot (2127773802649 105) Other hammer toe(s) (acquired), right foot (M20.41) Active confirmed Problem Acquired hammer toe of left foot (7910248071057 103) Other hammer toe(s) (acquired), left foot (M20.42) Active confirmed Vital Signs Blood pressure diastolic 70 mm Hg 04/02/2025 Height 5 ft 7 in in 04/02/2025 Blood pressure systolic 130 mm Hg 04/02/2025 Weight 180 lbs 04/02/2025 BMI 28.19 kg/m2 04/02/2025 Encounters Encounter Location Date Provider Diagnosis [address] [address] 01/01/2025 Michelle Pagan Type 2 diabetes mellitus with diabetic peripheral angiopathy without gangrene E11.51 ; Tinea unguium B35.1 ; Pain in right toe(s) M79.674 ; Pain in left toe(s) M79.675 ; Tinea pedis of both feet B35.3 ; Other hammer toe(s) (acquired), left foot M20.42 and Other hammer toe(s) (acquired), right foot M20.[address] [address] 04/02/2025 Michelle Pagan Other hammer toe(s) (acquired), right foot M20.41 ; Xerosis of skin L85.3 ; Type 2 diabetes mellitus with diabetic peripheral angiopathy without gangrene E11.51 ; Tinea unguium B35.1 ; Pain in right toe(s) M79.674 ; Pain in left toe(s) M79.675 ; Tinea pedis of both feet B35.3 and Other hammer toe(s) (acquired), left foot M20.42 [facility] [address] 11/10/[address] Michelle Pagan [address] [address] 01/05/2025 Michelle Pagan Assessments Encounter Date Diagnosis [...] Treatment Pending Test Test Name Order Date [id number] NAIL, 6 OR MORE 10/31/2016 [id number] NAIL, 6 OR MORE 01/30/2017 [id number] SKIN LESIONS, OVER 4 11/01/19 17 [id number] SKIN LESIONS, OVER 4 01/31/20 17 Next Appt Details Provider Name:Michelle plummer, 07/09/2025 01:30:00 PM, [address] [facility], [place], [address], Insurance Providers Payer Name Payer Address Payer Phone Subscriber Number Group Number Insured Name Patient Relationship to Insured Coverage Start Date Coverage End Date AARP Medicare Complete [address] [address] [place] [address] [phone] [id number] Susan Florez Self - patient is the [...]
--- OUTSIDE RECORDS SUMMARY | 2025-05-05 14:44 | XMS_ITS | Encounter Summary ---
Author Organization [facility] Address [address] [place] [address] Phone Care Team Providers Care Aviation Project Engineer Name Role Phone Michael Tuttle MD Primary Care Provider [phone] Encounter Details Date Type Department Care Team (Late st Contact Info) Description 11/11/2024 Documentation Only [facility], [address] [place] [address] [place] [address] [place] [address] Social History Tobacco Use Types [...] on filedocumented in this encounter Care Teams Aviation Project Engineer Relationship Specialty Start Date End Date Michael Tuttle MD [address] [address] PCP - General Internal Medicine 11/07/24 documented as of this encounter
--- OUTSIDE RECORDS SUMMARY | 2025-05-05 14:44 | XMS_ITS | Clinical Summary ---
Author Organization [address] [place] [address] Address [address] [place] [address] Phone Care Team Providers Care Plant Superintendent Name Role Phone Michael Tuttle MD Primary Care Provider [phone] Allergies Active Allergy Reactions Criticality Noted Date [...] discontinuing each. Patient to follow-up with an mortar maker to see if she is able to [...] increased to 120 mg daily by her prestressed concrete laborer. Not sure whether that is causing headaches. [...] 2 diabetes mellitus wit h neurological manifestations ([facility] V24, [facility] V28) 09/11/2018 Carpal tunnel syndrome 09/11/2018 Hypertension [...] 2 diabetes mellitus wit h renal manifestations ([facility] V24, [facility] V28) 02/25/2018 CKD (chronic kidney disease) stage 3, GFR 30-59 ml/min ([facility] V24, [facility] V28) 02/25/2018 DM (obstructive sleep apnea) 02/25/2018 [...] Type Department Care Team Description 04/23/2025 Telephone [facility] [address] [place] [phone] Conrado Rush MD 03/30/2025 Telephone [facility] [place] [address] [place] [address] Michael Tuttle MD 03/23/2025 3:00 PM EDT Office Visit [facility] [place] [address] [place] [phone] Michael Tuttle MD Type 2 diabetes mellitus with neurological manifestations ([facility] V24, [facility] V28) (Primary Dx); Coronary artery disease involving citizen [place] coronary artery of citizen [place] heart without angina pectoris; Hypercholesterolemia; Stage 3 chronic kidney disease, unspecified whether stage 3a or 3b CKD ([facility] V24, [facility] V28) 03/16/2025 Results Follow-Up [facility] [address] [place] [phone] Michelle Galvez NP 02/19/2025 12:30 PM EDT Ancillary Procedure [facility] [address] [place] [phone] Mitral valve stenosis, unspecified etiology from Last 3 Months Immunizations Immunization Administration [...] kidney disease) stage 3, GFR 30-59 ml/min ([facility] V24, [facility] V28) 02/25/2018 DX:CKD (chronic kidney disea se) stage 3, GFR 30-59 ml/min ([facility]) DJD (degenerative joint dise ase) of knee [...] PM EST Office Visit [facility] - [place] [address] [phone] Michael Tuttle MD [address] [facility] [address] [place] [address] Health Maintenance Due Date Last Done Comments [...] PM EDT Mitral valve stenosis, unspecified etiology BASIC METABOLIC PANEL STAT 01/29/2025 1:16 PM EDT HEMOGLOBIN A1C Routine 09/26/2024 2:20 PM EDT Primary hypertension Hypercholesterolemi a Coronary artery disease involving citizen [place] coronary artery of citizen [place] heart without angina pectoris Diabetes mellitus type 1.5, managed as type 2 (CMS/HCC V24, CMS/HCC V28) LIPID PANEL WITH REFLEX TO DIRECT LDL Routine 09/26/2024 2:20 PM EDT Primary hypertension Hypercholesterolemi a Coronary artery disease involving citizen [place] coronary artery of citizen [place] heart without angina pectoris Diabetes mellitus type 1.5, managed as type 2 (CMS/HCC V24, CMS/HCC V28) HM DIABETES EYE EXAM Routine 11/13/2023 from Last 3 Months or Most Recently Relevant to Health Maintenance Results * (ABNORMAL) TRANSTHORACIC ECHOCARDIOGRAM (TTE) COMPLETE (02/19/2025 1:24 PM EDT) Left [facility] Minor [place] 5.4 cm CV PACS Left At[facility] Major [place] 4.8 cm CV PACS [place] Area Sys [...] ECHO PROCEDURES Final Resul t * (ABNORMAL) Basic metabolic panel (01/29/2025 1:16 PM EDT) Sodium 139 133 - 145 mmol/L LAB CHEMISTRY METHOD 01/29/2025 2:[address] [facility] Potassium 4.2 3.5 - 5.5 mmol/L LAB CHEMISTRY METHOD 01/29/2025 2:[address] [facility] Chloride 106 96 - 110 mmol/L LAB CHEMISTRY METHOD 01/29/2025 2:[address] [facility] CO2 29 21 - 32 mmol/L LAB CHEMISTRY METHOD 01/29/2025 2:[address] [facility] Anion Gap 4 3 - 11 LAB CHEMISTRY METHOD 01/29/2025 2:[address] [facility] Glucose 179(H) 70 - 100 mg/dL LAB CHEMISTRY METHOD 01/29/2025 2:[address] [facility] BUN 17 5 - 25 mg/dL LAB CHEMISTRY METHOD 01/29/2025 2:[address] [facility] Creatinine 1.45(H) 0.50 - 1.10 mg/dL LAB CHEMISTRY METHOD 01/29/2025 2:[address] [facility] eGFR 35(L) >=60 mL/min/1. 73m2 LAB CHEMISTRY METHOD 01/29/2025 2:[address] [facility] Comment:Calculation based on the Chronic Kidney Disease Epidemiology Collaboration (CKD-EPI) equation refit without adjustment for race. BUN/Creatinine Ratio 11.7 LAB CHEMISTRY METHOD 01/29/2025 2:[address] [facility] Calcium 9.5 8.5 - 10.5 mg/dL LAB CHEMISTRY METHOD 01/29/2025 2:[address] [facility] Blood Venous blood specimen / Unknown Venipuncture / Unknown 01/29/2025 1:16 PM EDT 01/29/2025 1:30 PM EDT Braden Galindo MD LAB BLOOD ORDERABLES Final Result [facility] [address] [place] [address], [place] [phone] * Lipid panel with reflex to direct LDL (09/26/2024 2:20 PM EDT) Cholesterol 101 0 - 200 mg/dL LAB CHEMISTRY METHOD 09/26/2024 7:38 PM EDT [facility] Triglycerides 106 0 - 150 mg/dL LAB CHEMISTRY METHOD 09/26/2024 7:38 PM EDT [facility] HDL 44 >=40 mg/dL LAB CHEMISTRY METHOD 09/26/2024 7:38 PM EDT [facility] LDL Calculated 36 0 - 100 mg/dL LAB CHEMISTRY METHOD 09/26/2024 7:38 PM EDT [facility] VLDL Cholesterol Tadeo 21.2 mg/dL LAB CHEMISTRY METHOD 09/26/2024 7:38 PM EDT [facility] Non HDL Chol. (LDL+VLDL) 57 <145 mg/dL LAB CHEMISTRY METHOD 09/26/2024 7:38 PM EDT [facility] Chol/HDL Ratio 2.3 0.0 - 4.4 LAB CHEMISTRY METHOD 09/26/2024 7:38 PM EDT [facility] Blood Venous blood specimen / Unknown Venipuncture / Unknown 09/26/2024 2:20 PM EDT 09/26/2024 2:20 PM EDT us Michael Tuttle MD LAB BLOOD ORDERABLES Final Resul t [facility] [address] [place] [address], [place] [phone] * (ABNORMAL) Hemoglobin A1c (09/26/2024 2:20 PM EDT) Hemoglobin A1C 8.0(H) <6.5 % LAB CHEMISTRY METHOD 09/26/2024 9:34 PM EDT [facility] Mean Bld Glu Estim. 183 mg/dL LAB CHEMISTRY METHOD 09/26/2024 9:34 PM EDT [facility] Blood Venous blood specimen / Unknown Venipuncture / Unknown 09/26/2024 2:20 PM EDT 09/26/2024 2:20 PM EDT Michael Tuttle MD LAB BLOOD ORDERABLES Final Resul t [facility] [address] [place] [address], [place] [phone] * Diabetes Eye Exam (11/13/2023) Diabetes: Annual Retina Eye Exam abstracted Ethan Provider HEALTH MAINTENANCE Final Result from Last 3 Months or Most Recently Relevant to Health Maintenance Insurance [employer] MEDICARE MEDICAID - [place] Care Teams Plant Superintendent Relationship Specialty Start Date End Date Michael Tuttle MD [address] [place] [address] PCP - General Internal Medicine 03/03/21
--- OUTSIDE RECORDS SUMMARY | 2025-05-05 14:44 | XMS_ITS | Clinical Summary ---
Author Organization [facility], Address [address] [place] [address] [place] [address] Phone Care Team Providers Care Finished Garment Inspector Name Role Phone Michael Tuttle MD Primary Care Provider [phone] Allergies Active Allergy Reactions Criticality Noted Date [...] Payer ID:[id number] (NAIC) Type:Not on file Address: [place] [phone] Care Teams Finished Garment Inspector Relationship Specialty Start Date End Date Michael Tuttle MD [address] [address] PCP - General Internal Medicine 11/07/24
== END 2025-05-05 11:40 | disposition home or self-care (01) ==
LOC: HO.HKAS 11:10
PROVIDERS: PCP Internal Medicine; Visit Provider Internal Medicine Nephrology
DX: N18.31 Chronic kidney disease, stage 3a (principal); I10 Essential (primary) hypertension
CPT/HCPCS: 99214